=== PATIENT | female | born 1970 | race Caucasian/White ===

== ENCOUNTER 2017-01-22 16:48 | Emergency (ER) | payer OTHER ==
[2017-01-22] MEDS ORDERED: ONDANSETRON 4 MG TAB.RAPDIS PO ONE (17:49)
[2017-01-22] MEDS ORDERED: OXYCODONE-ACETAMINOPHEN 5-325 MG TABLET PO ONE (17:49)
--- NOTE | 2017-01-22 17:52 | ER Document Report ---
ED Medical Screen (RME) - General Chief Complaint: Abdominal Pain Stated Complaint: ABDOMINAL PAIN,VOMITING Time Seen by Provider: 01/22/17 17:46 Notes: This 46-year-old female comes emergency room with a week long history of sharp abdominal pains, vomiting, cramps, and feeling like gas. She is on Remicade for Crohn's disease. She was put on Augmentin on 01/08/2017 after a root canal. She was put on Macrodantin 01/17/2017 for urinary tract infection. I have greeted and performed a rapid initial assessment of this patient. A comprehensive ED assessment and evaluation of the patient, analysis of test results and completion of the medical decision making process will be conducted by additional ED providers. - Related Data Allergies/Adverse Reactions: latex [Latex] Allergy (Severe, Verified 12/19/11 12:55) Shellfish * [Shellfish] Allergy (Severe, Verified 12/19/11 12:55) Past Medical History - Past Medical History Cardiac Medical History: Reports: Hx Hypertension Denies: Hx Coronary Artery Disease, Hx Heart Attack Pulmonary Medical History: Denies: Hx Asthma, Hx Bronchitis, Hx COPD, Hx Pneumonia Neurological Medical History: Denies: Hx Cerebrovascular Accident Renal/ Medical History: Denies: Hx Peritoneal Dialysis Musculoskeltal Medical History: Denies Hx Arthritis - Immunizations Hx Diphtheria, Pertussis, Tetanus Vaccination: Yes Physical Exam - Vital signs Vitals: Temp Pulse Resp BP Pulse Ox 98.5 F 110 H 22 H 121/87 H 99 01/22/17 17:20 01/22/17 17:20 01/22/17 17:20 01/22/17 17:20 01/22/17 17:20 Course - Vital Signs Vital signs: Temp Pulse Resp BP Pulse Ox 98.5 F 110 H 22 H 121/87 H 99 01/22/17 17:20 01/22/17 17:20 01/22/17 17:20 01/22/17 17:20 01/22/17 17:20
--- NOTE | 2017-01-22 19:02 | RADIOLOGY REPORT (SQ) ---
EXAM DESCRIPTION: ACUTE ABDOMEN SERIES COMPLETED DATE/TIME: 01/22/2017 6:54 pm REASON FOR STUDY: cramps, gas, Crohn's COMPARISON: None. NUMBER OF VIEWS: Three views. TECHNIQUE: Frontal chest, supine abdomen and upright abdomen radiographic images acquired. LIMITATIONS: None. FINDINGS: CHEST: Lungs clear of infiltrates. FREE AIR: None. No abnormal gas collections. BOWEL GAS PATTERN: Nonobstructive pattern. No dilated loops or air fluid levels. CALCIFICATIONS: No suspicious calcifications. HARDWARE: None in the abdomen. SOFT TISSUES: No gross mass or suggestion of organomegaly. BONES: No acute fracture. No worrisome bone lesions. OTHER: No other significant finding. IMPRESSION: NO RADIOGRAPHIC EVIDENCE FOR ACUTE ABDOMINAL DISEASE. TECHNICAL DOCUMENTATION: JOB ID: [id number] [employer]- All Rights Reserved
[2017-01-22 19:41] LABS: AMORPHOUS SEDIMENT,URINE 1+ /HPF; APPEARANCE,URINE TURBID; BILIRUBIN,URINE SMALL (NEGATIVE); GLUCOSE, URINE NEGATIVE (NEGATIVE); KETONES,URINE NEGATIVE (NEGATIVE); LEUKOCYTE ESTERASE,URINE SMALL (NEGATIVE); NITRITE,URINE NEGATIVE (NEGATIVE); PROTEIN,URINE 30 mg/dL (NEGATIVE); URINE SPECIFIC GRAVITY 1.031; UROBILINOGEN,URINE NEGATIVE mg/dL (<2.0)
[2017-01-22 20:05] LABS: ABSOLUTE BASOPHILS # (AUTO) 0.1 10^3/uL (0.0-0.2); ABSOLUTE LYMPHOCYTES (AUTO) 1.5 10^3/uL (0.5-4.7); ABSOLUTE MONOCYTES (AUTO) 0.4 10^3/uL (0.1-1.4); ABSOLUTE NEUT (AUTO) 16.5 10^3/uL (1.7-8.2); BASOPHILS % (AUTO) 0.4 % (0-2); HEMATOCRIT 46.5 % (36.0-47.0); HEMOGLOBIN 14.6 g/dL (12.0-15.5); HGB HCT DIFFERENCE -2.7; MEAN CORPUSCULAR HEMOGLOBIN 23.6 pg (27.0-33.4); MEAN CORPUSCULAR HGB CONC 31.3 g/dL (32.0-36.0); MEAN CORPUSCULAR VOLUME 75 fl (80-97); MONOCYTES % (AUTO) 2.1 % (3-13); RED BLOOD COUNT 6.18 10^6/uL (3.72-5.28); RED CELL DISTRIBUTION WIDTH 15.3 % (11.5-14.0); SEGMENTED NEUTROPHILS % (AUTO) 89.5 % (42-78); WHITE BLOOD COUNT 18.4 10^3/uL (4.0-10.5)
[2017-01-22 20:06] VITALS: BP 118/82
[2017-01-22] MEDS ORDERED: NORMAL SALINE 1000 ML 1,000 ML IV ONE (20:16)
[2017-01-22] MEDS ORDERED: METHYLPREDNISOLONE INJ 125 MG/2 ML SDV IV ONE (20:17)
[2017-01-22] MEDS ORDERED: KETOROLAC TROMETHAMINE INJ/PF 30 MG/1 ML SDV IV ONE (20:17)
[2017-01-22 20:18] LABS: ALANINE AMINOTRANSFERASE 23 U/L (9-52); ALBUMIN 4.8 g/dL (3.5-5.0); ALKALINE PHOSPHATASE 63 U/L (38-126); ANION GAP 17 (5-19); ASPARTATE AMINO TRANSFERASE 20 U/L (14-36); BILIRUBIN,DIRECT 0.3 mg/dL (0.0-0.4); BILIRUBIN,TOTAL 0.8 mg/dL (0.2-1.3); BLOOD UREA NITROGEN 14 mg/dL (7-20); CALCIUM 10.3 mg/dL (8.4-10.2); CARBON DIOXIDE 19 mmol/L (22-30); CHLORIDE 103 mmol/L (98-107); CREATININE RESULT 0.89 mg/dL (0.52-1.25); GLUCOSE 141 mg/dL (75-110); LIPASE 158.8 U/L (23-300); SODIUM 139.1 mmol/L (137-145)
[2017-01-22] MEDS ORDERED: MORPHINE SULFATE 10 MG/ML INJ IV PRN (20:20)
--- NOTE | 2017-01-22 20:20 | ER Document Report ---
ED General - General Chief Complaint: Abdominal Pain Stated Complaint: ABDOMINAL PAIN,VOMITING Time Seen by Provider: 01/22/17 17:46 Notes: Patient is a 46-year-old female with past medical history of Crohn's disease currently on Remicade infusions for control who presents with 3 days of constant , diffuse abdominal cramping. Nothing improves or worsens her symptoms. States her symptoms began after she was started on a course of Augmentin for a dental infection. States she was also diagnosed with a urinary tract infection and transition to a different antibiotic which she also not seems to worsen her abdominal pain. She has since stopped all antibiotics. Notes that she has had some nausea as well as vomiting but denies any diarrhea. States she continues to have regular bowel movements. She has not had any fever. She has not seen her primary care doctor regarding her symptoms today. No prior history of abdominal surgeries. - Related Data Allergies/Adverse Reactions: latex [Latex] Allergy (Severe, Verified 12/19/11 12:55) Shellfish * [Shellfish] Allergy (Severe, Verified 12/19/11 12:55) Past Medical History - General Information source: Patient - Social History Smoking Status: Never Smoker Frequency of alcohol use: None Drug Abuse: None Lives with: Spouse/Significant other Family History: Reviewed & Not Pertinent - Past Medical History Cardiac Medical History: Reports: Hx Hypertension Denies: Hx Coronary Artery Disease, Hx Heart Attack Pulmonary Medical History: Denies: Hx Asthma, Hx Bronchitis, Hx COPD, Hx Pneumonia Neurological Medical History: Denies: Hx Cerebrovascular Accident Renal/ Medical History: Denies: Hx Peritoneal Dialysis Musculoskeltal Medical History: Denies Hx Arthritis - Immunizations Hx Diphtheria, Pertussis, Tetanus Vaccination: Yes Review of Systems - Review of Systems Notes: Constitutional: Negative for fever. HENT: Negative for sore throat. Eyes: Negative for visual changes. Cardiovascular: Negative for chest pain. Respiratory: Negative for shortness of breath. Gastrointestinal: Positive for abdominal pain and vomiting Genitourinary: Negative for dysuria. Musculoskeletal: Negative for back pain. Skin: Negative for rash. Neurological: Negative for headaches, weakness or numbness. 10 point ROS negative except as marked above and in HPI. Physical Exam - Vital signs Vitals: Temp Pulse Resp BP Pulse Ox 98.5 F 110 H 22 H 121/87 H 99 01/22/17 17:20 01/22/17 17:20 01/22/17 17:20 01/22/17 17:20 01/22/17 17:20 Interpretation: Tachycardic Notes: PHYSICAL EXAMINATION: GENERAL: Appears mildly uncomfortable but in no acute distress HEAD: Atraumatic, normocephalic. EYES: Pupils equal round and reactive to light, extraocular movements intact, sclera anicteric, conjunctiva are normal. ENT: nares patent, oropharynx clear without exudates. Moist mucous membranes. NECK: Normal range of motion, supple without lymphadenopathy LUNGS: Breath sounds clear to auscultation bilaterally and equal. No wheezes rales or rhonchi. HEART: Regular rate and rhythm without murmurs ABDOMEN: Soft, diffuse mild tenderness to palpation without focality. No rebound or guarding. Hyperactive bowel sounds. EXTREMITIES: Normal range of motion, no pitting or edema. No cyanosis. NEUROLOGICAL: No focal neurological deficits. Moves all extremities spontaneously and on command. PSYCH: Normal mood, normal affect. SKIN: Warm, Dry, normal turgor, no rashes or lesions noted. Course - Re-evaluation Re-evalutation: 01/22/17 20:19 Patient presents with signs and symptoms most consistent with an acute Crohn's flare. Abdominal exam is without any focal rebound or guarding but is diffusely tender. She is not vomiting and continues to have bowel movements. Her laboratories demonstrate a leukocytosis which is expected in the setting of a Crohn's flare. She has no focal rebound or guarding to suggest an acute appendicitis, mesenteric ischemia, bowel perforation, or bowel obstruction. Plain films did not demonstrate any free air or evidence of small bowel obstruction. Will proceed with IV fluids, antiemetics, pain control and reassess. 01/22/17 21:49 On repeat abdominal exam, patient no longer has any tenderness. She states she also feels much better. Stool assay testing is normal. I have had a risks and benefits conversation with the patient regarding CT imaging of the abdomen and pelvis at this time. We discussed, based on today's exam and labs there is a possibility that they could have a diagnosis that could be better clarified by CT and that this could possibly size changer. We discussed the risks of radiation to the abdomen and pelvis. We discussed the alternative of close follow-up with their primary care physician for a recheck of the abdomen within 24 hours as well as reasons to return to the emergency department. After this conversation, the patient has elected to avoid CT imaging of the abdomen and pelvis at this time. They have capacity. They have verbalized the importance of close follow-up as well as reasons to return to the emergency department including worsening abdominal pain, fever, persistent vomiting, or any other symptoms that are worrisome to them. - Vital Signs Vital signs: Temp Pulse Resp BP Pulse Ox 98.5 F 110 H 14 118/82 99 01/22/17 22:39 01/22/17 17:20 01/22/17 22:00 01/22/17 20:00 01/22/17 22:00 - Laboratory Result Diagrams: 01/22/17 19:45 01/22/17 19:45 Laboratory results interpreted by me: 01/22/17 01/22/17 01/22/17 18:10 19:45 19:45 WBC 18.4 H RBC 6.18 H MCV 75 L MCH 23.6 L MCHC 31.3 L RDW 15.3 H Seg Neutrophils % 89.5 H Lymphocytes % 8.0 L Monocytes % 2.1 L Absolute Neutrophils 16.5 H Carbon Dioxide 19 L Glucose 141 H Calcium 10.3 H Total Protein 9.0 H Urine Protein 30 H Urine Bilirubin SMALL H Ur Leukocyte Esterase SMALL H - Diagnostic Test Radiology reviewed: Image reviewed, Reports reviewed Radiology results interpreted by me: 01/22/17 21:50 Abdominal x-ray: No free air or evidence of obstruction Discharge - Discharge Clinical Impression: Abdominal pain Qualifiers: Abdominal location: generalized Qualified Code(s): R10.84 - Generalized abdominal pain Condition: Good Disposition: HOME, SELF-CARE Additional Instructions: You have been seen in the Emergency Department (ED) for abdominal pain. Your evaluation did not identify a clear cause of your symptoms but was generally reassuring. Your symptoms may be related to a Crohn's flare and you are being treated with a 7 day course of steroids. Please follow-up with your primary care doctor tomorrow for recheck of your abdomen. Return to the ED if your abdominal pain worsens or fails to improve, you develop bloody vomiting, bloody diarrhea, you are unable to tolerate fluids due to vomiting, fever greater than 101, or other symptoms that concern you. Prescriptions: Morphine Sulfate [Morphine Ir 15 mg Tablet] 15 mg PO Q4HP PRN #12 tablet PRN Reason: Prednisone [Deltasone 20 mg Tablet] 3 tab PO DAILY 7 Days Forms: Return to Work Referrals: KIERA LLAA PA-C [Primary Care Provider] - Follow up tomorrow
[2017-01-22 20:41] LABS: ERYTHROCYTE SEDIMENTATION RATE 18 mm/hr (0-20)
[2017-01-22] MEDS ORDERED: ONDANSETRON ODT 4 MG TAB (6 TAB/DSPK) PO PRN (21:50)
[2017-01-22] MEDS ORDERED: HYDROCODONE/ACETAMINOPHEN 5-325 MG 6 TAB/DSPK PO PRN (21:50)
== END 2017-01-22 22:30 | disposition home or self-care (01) ==
LOC: ER 16:48
DX: K50.90 Crohn's disease, unspecified, without complications (principal); Z79.899 Other long term (current) drug therapy; R10.84 Generalized abdominal pain; R11.2 Nausea with vomiting, unspecified; R00.0 Tachycardia, unspecified; D72.829 Elevated white blood cell count, unspecified; I10 Essential (primary) hypertension; Z87.440 Personal history of urinary (tract) infections; Z91.040 Latex allergy status; Z91.013 Allergy to seafood
CPT/HCPCS: 99284; 96361; 96374; 96375; 36415; 87045; 89055; 87205; 83690; 85025; 85652; 82272; 80053; 81001; 87493 ×2; 74022; S0119; J2930; J1885; J7030

== ENCOUNTER 2017-02-07 05:21 | Day surgery (SDC) | payer OTHER ==
--- NOTE | 2017-02-06 13:00 | EKG REPORT ---
SEVERITY:- NORMAL ECG - SINUS RHYTHM : Confirmed by: Kenn Vincent MD 06-Feb-2017 13:00:02
[2017-02-06 13:28] LABS: HEMATOCRIT 43.6 % (36.0-47.0); HEMOGLOBIN 13.8 g/dL (12.0-15.5); HGB HCT DIFFERENCE -2.2; MEAN CORPUSCULAR HEMOGLOBIN 24.4 pg (27.0-33.4); MEAN CORPUSCULAR HGB CONC 31.7 g/dL (32.0-36.0); MEAN CORPUSCULAR VOLUME 77 fl (80-97); RED BLOOD COUNT 5.67 10^6/uL (3.72-5.28); RED CELL DISTRIBUTION WIDTH 16.5 % (11.5-14.0); WHITE BLOOD COUNT 6.5 10^3/uL (4.0-10.5)
[2017-02-06 13:38] LABS: APPEARANCE,URINE CLEAR; BILIRUBIN,URINE NEGATIVE (NEGATIVE); GLUCOSE, URINE NEGATIVE (NEGATIVE); KETONES,URINE NEGATIVE (NEGATIVE); LEUKOCYTE ESTERASE,URINE MODERATE (NEGATIVE); NITRITE,URINE NEGATIVE (NEGATIVE); PROTEIN,URINE NEGATIVE (NEGATIVE); URINE SPECIFIC GRAVITY 1.008; UROBILINOGEN,URINE NEGATIVE mg/dL (<2.0)
[2017-02-06 13:52] LABS: ALANINE AMINOTRANSFERASE 32 U/L (9-52); ALKALINE PHOSPHATASE 61 U/L (38-126); ANION GAP 15 (5-19); ASPARTATE AMINO TRANSFERASE 20 U/L (14-36); BILIRUBIN,DIRECT 0.4 mg/dL (0.0-0.4); BILIRUBIN,TOTAL 0.8 mg/dL (0.2-1.3); BLOOD UREA NITROGEN 8 mg/dL (7-20); CALCIUM 9.9 mg/dL (8.4-10.2); CARBON DIOXIDE 25 mmol/L (22-30); CHLORIDE 100 mmol/L (98-107); CREATININE RESULT 0.77 mg/dL (0.52-1.25); GLUCOSE 90 mg/dL (75-110); POTASSIUM 4.5 mmol/L (3.6-5.0); SODIUM 140.4 mmol/L (137-145)
[~2017-02-07 05:21] MED LIST: CEFAZOLIN 1 GM/D5W RTU 1 GM/50 ML RTUPB IV PRN; LIDOCAINE 0.5% INJ-PF (5 MG/ML) 50 ML SDV SUBCUT PRN; RINGERS SOLUTION,LACTATED 1,000 ML IV PRN
[2017-02-07] MEDS ORDERED: PROPOFOL INJ 200 MG/20 ML VIAL IV ONE (07:09)
[2017-02-07] MEDS ORDERED: EPHEDRINE SULFATE INJ 50 MG/1 ML AMPULE ONE (07:09)
[2017-02-07] MEDS ORDERED: FENTANYL CITRATE INJ/PF 250 MCG/5 ML AMPULE ONE (07:09)
[2017-02-07] MEDS ORDERED: MIDAZOLAM 2 MG/2 ML INJ ONE (07:09)
[2017-02-07] MEDS ORDERED: ACETAMINOPHEN 100 ML IV ONE ×2 (07:09→15:00)
[2017-02-07] MEDS ORDERED: HYDROMORPHONE HCL INJ/PF 2 MG/ML AMPULE ONE (07:10)
[2017-02-07] MEDS ORDERED: PROMETHAZINE HCL INJ 25 MG/1 ML VIAL IV PRN ×2 (10:28)
[2017-02-07] MEDS ORDERED: OXYCODONE-ACETAMINOPHEN 5-325 MG TABLET PO PRN ×2 (10:28)
[2017-02-07] MEDS ORDERED: MORPHINE SULFATE 10 MG/ML INJ IV PRN ×2 (10:28→11:25)
[2017-02-07] MEDS ORDERED: FENTANYL CITRATE INJ/PF 100 MCG/2 ML AMPUL IV PRN ×3 (10:28)
[2017-02-07] MEDS ORDERED: MEPERIDINE HCL/PF INJ 25 MG/1 ML DISP.SYRIN IV PRN (10:28)
[2017-02-07] MEDS ORDERED: DIPHENHYDRAMINE HCL 50 MG/ML VIAL IV PRN (10:28)
[2017-02-07] MEDS: FENTANYL CITRATE INJ/PF 100 MCG/2 ML AMPUL ONE ×2 (10:58→11:13)
[2017-02-07] MEDS ORDERED: IBUPROFEN 800 MG TABLET PO PRN (11:25)
[2017-02-07] MEDS ORDERED: RINGERS SOLUTION,LACTATED 1,000 ML IV PRN (11:26)
--- NOTE | 2017-02-07 12:04 | OPERATIVE REPORT E ---
Operative Report NAME: ADITYA ONTIVEROS : 1970 AGE: 46Y DATE OF SURGERY: ROOM: PREOPERATIVE DIAGNOSES: 1. Abnormal uterine bleeding. 2. Chronic pelvic pain. 3. Anemia. 4. Suspected adhesion disease. POSTOPERATIVE DIAGNOSES: 1. Abnormal uterine bleeding. 2. Chronic pelvic pain. 3. Anemia. 4. Suspected adhesion disease. 5. Adhesions. OPERATION: Robotic-assisted total laparoscopic hysterectomy with bilateral salpingectomy, and extensive lysis of adhesions. SURGEON: TRICIA NGUYEN M.D. ANESTHESIA: DR. DE LA GARZA with general endotracheal. FINDINGS: 1. Dense omental adhesions to the anterior abdominal wall going pretty much the length of especially the right sidewall and in the midline. 2. Enlarged uterus probably about 14-week size, very boggy in appearance. Both fallopian tubes did have evidence of tubal ligation. 3. Mild adhesions of the epiploica of the descending colon to the pelvic sidewall. 4. Paratubal cysts that were noted on the fallopian tubes on both sides. ESTIMATED BLOOD LOSS: 100 mL. SPECIMENS REMOVED: Uterus, cervix, and bilateral fallopian tubes. PROCEDURE: Patient was taken to the operating room, prepared and draped in the normal sterile fashion in the dorsal lithotomy position. Under sterile conditions a Bernabe was placed to gravity without difficulty. A sterile speculum was then placed into the vagina, and the cervix was examined. The anterior lip of the cervix was grasped with a single-tooth tenaculum, and the cervix was dilated to accommodate a large VCare. This was placed without difficulty for uterine manipulation. The speculum was then removed, and the VCare left in place. Gloves were changed, and attention was then turned to the upper portion of the case where an umbilical skin incision was made right at the umbilicus with a scalpel, and this was carried through to the underlying layer of fascia with a hemostat. This fascia was then grasped with 2 Kochers, and cutdown method was used to enter the peritoneal cavity. Peritoneal cavity was entered sharply with Reji, careful to inspect for possible intervening bowel. Peritoneal cavity entry was successful without injury. The fascia was then extended carefully again to avoid adhesions and bowel with the Lewis scissors to accommodate the GelPOINT. The GelPOINT was then placed without difficulty, the ports were placed through the GelPOINT, and the abdomen was then insufflated with approximately 2 liters of CO2 gas through the AirSeal trocar. The camera was introduced through the camera port, and under direct visualization two 5-mm ports were placed approximately 10 cm on either side of the umbilicus. The robot was docked, and the instruments were placed with the monopolar scissors on the right and a vessel sealer on the left. I then de-scrubbed and sat at the console where I began trying to remove some of the omental adhesions as best I could with blunt dissection using the vessel sealer as a grasper with gentle traction and pulling down as many of those adhesions as I could until I could visualize the adnexae more adequately. I began with the left adnexa as this was the part that presented itself more readily. I then removed the fallopian tube using the monopolar scissors and placed the fallopian tube with the paratubal cyst into the anterior cul-de-sac for removal later. I then began transecting the uteroovarian ligament with the vessel sealer until I got to the level of the external cervical os. I then, because I could not well visualize the anterior aspect of the cervix easily at this point due to adhesions, as well as lack of ability to manipulate the uterus because of the adhesions, turned my attention to the left adnexa. I grasped the left fallopian tube; however, the omental adhesions began to impede my visualization, so I turned my attention back to the omental adhesions once more. Then I had the surgical elastic knitter hand frame remove the camera, and clean and replace, as well as re-position the monopolar scissors to remove them and re-position the port slightly in order to get better manipulation of the instrument. Once the camera and the instrument were replaced, I again once more turned my attention to the omental adhesions, and these were taken down using the monopolar scissors sharply with careful inspection to make sure that there were no loops of bowel that were hidden in the omentum. Once this was successful, I was able to get the rest of the adhesions down at this point, making visualization of the adnexa and the uterus much easier. I then turned my attention back to the left adnexa where the fallopian tube was grasped, and this was removed using the monopolar scissors, and again tucked into the anterior cul-de-sac for removal by the surgical elastic knitter hand frame through the accessory AirSeal port while I continued with the rest of the case. The uteroovarian ligament was then transected using the vessel sealer on this side, and I carried my coagulation and skeletonization of the uterine artery down to the level of the external cervical os. At this point I was able to get better visualization of the anterior aspect of the cervix and noted that the bladder adhesions were indeed very dense at this point. I then began with careful dissection and creation of a bladder flap, and this was done with the monopolar scissors and some blunt dissecting until I was able to feel that the bladder was well away and the VCare cup was able to be noted through the mucosa. I then continued with coagulation of the uterine arteries bilaterally, kind of switching back and forth using the vessel sealer until I was able to get to the VCare cup all the way around and noted it through the mucosa all the way around. There were significant more adhesions on the left uterosacral. These had to be taken down as well using the vessel sealer as well as the monopolar scissors as needed. Once this was completed, and I was able to circumferentially visualize the cup around the cervix through the mucosa, I then began with a colporrhaphy posteriorly between the uterosacral ligaments, and I carried this around circumferentially until the specimen was completely freed. The specimen was then removed by the other manager surgical through the vagina. The instruments were changed to a Rajesh Needle Video Tape Transferrer and a ProGrasp. A V-Loc needle was introduced through the AirSeal executive personal assistant's port, and I then closed the cuff incorporating the uterosacral ligaments at both angles using the V-Loc suture. I did have to dissect the bladder away somewhat from the superior aspect of the vaginal cuff in order to avoid injury or incorporation of the bladder into the closure, and this was done with simple blunt dissection. Once the vaginal cuff was completely closed, the needle was removed without difficulty. The ureters were then inspected carefully and found to have no evidence of hydroureter and to be peristalsing. The Bernabe was inspected and found that the patient was having adequate urine production. Therefore, it was felt that the ureters were not injured during the case. The robot was then undocked, and the ports and instruments were removed carefully. The GelPort was released, and the abdomen deflated of gas. The fascia at the umbilical incision was closed with #0 Vicryl, taking care to visualize bowel well away from the fascial closure while being closed. The subcutaneous space in this incision was also closed with 3-0 chromic. The skin was closed at all 3 sites using 4-0 Vicryl. The patient tolerated the procedure well. Sponge, lap, and needle counts were correct x2, and the patient was taken to recovery in stable condition. DICTATING PHYSICIAN: TRICIA NGUYEN M.D. [id number] PHY#: [id number] ID: [id number] JOB#: [id number] ACCT: [id number] cc:TRICIA NGUYEN M.D. >
[2017-02-07] MEDS: OXYCODONE-ACETAMINOPHEN 5-325 MG TABLET PO PRN ×2 (12:28→18:36)
[2017-02-07] MEDS ORDERED: NEOSTIGMINE METHYLSULFATE 10 MG/10 ML VIAL ONE (13:17)
[2017-02-07] MEDS ORDERED: ONDANSETRON HCL INJ/PF 4 MG/2 ML SDV ONE (13:17)
[2017-02-07] MEDS ORDERED: DEXAMETHASONE SOD PHOSPHATE INJ 4 MG/1 ML VIAL ONE (13:17)
[2017-02-07] MEDS ORDERED: KETOROLAC TROMETHAMINE 60 MG/2 ML SDV ONE (13:17)
[2017-02-07] MEDS ORDERED: SUCCINYLCHOLINE CHLORIDE INJ 200 MG/10 ML VIAL ONE (13:17)
[2017-02-07] MEDS ORDERED: GLYCOPYRROLATE INJ 0.4 MG/2 ML VIAL ONE (13:17)
[2017-02-07] MEDS ORDERED: ROCURONIUM BROMIDE INJ 50 MG/5 ML VIAL IV ONE (13:17)
[2017-02-07] MEDS ORDERED: KETOROLAC TROMETHAMINE INJ/PF 30 MG/1 ML SDV IV SCH (14:00)
[2017-02-07 18:59] VITALS: BP 125/75
[2017-02-08] MEDS ORDERED: IBUPROFEN 800 MG TABLET PO PRN (12:00)
== END 2017-02-07 20:20 | disposition home or self-care (01) ==
LOC: OROUT 05:21 → 2N 12:10 → OROUT 20:20
PROVIDERS: ATTEND Obstetrics & Gynecology
PROC: 0UTC4ZZ Resection of Cervix, Percutaneous Endoscopic Approach (ICD-10-PCS; 2017-02-07)
PROC: 0UT74ZZ Resection of Bilateral Fallopian Tubes, Percutaneous Endoscopic Approach (ICD-10-PCS; 2017-02-07)
PROC: 8E0W4CZ Robotic Assisted Procedure of Trunk Region, Percutaneous Endoscopic Approach (ICD-10-PCS; 2017-02-07)
PROC: 0DNW4ZZ Release Peritoneum, Percutaneous Endoscopic Approach (ICD-10-PCS; 2017-02-07)
PROC: 0UT94ZZ Resection of Uterus, Percutaneous Endoscopic Approach (ICD-10-PCS; principal; 2017-02-07 07:30)
DX: N93.8 Other specified abnormal uterine and vaginal bleeding (principal); G89.29 Other chronic pain; R10.2 Pelvic and perineal pain; D64.9 Anemia, unspecified; K66.0 Peritoneal adhesions (postprocedural) (postinfection); N87.0 Mild cervical dysplasia; N70.91 Salpingitis, unspecified; N83.8 Other noninflammatory disorders of ovary, fallopian tube and broad ligament; I10 Essential (primary) hypertension; E03.9 Hypothyroidism, unspecified; Z79.899 Other long term (current) drug therapy; Z91.040 Latex allergy status
CPT/HCPCS: 49329; 58571; S2900; 36415; 80053; 81001; 81025; 840; 85027; 86850; 86900; 86901; 88307; 93005; 93010; J0131; J0330; J0690; J1100; J1170; J1885; J2250; J2405; J2704; J3010; J3490

== ENCOUNTER 2017-05-05 10:32 | Emergency (ER) | payer OTHER ==
[2017-05-05] MEDS ORDERED: NORMAL SALINE 1000 ML 1,000 ML IV PRN (10:59)
[2017-05-05] MEDS ORDERED: ONDANSETRON HCL INJ/PF 4 MG/2 ML SDV IV ONE (10:59)
[2017-05-05] MEDS ORDERED: METHYLPREDNISOLONE INJ 125 MG/2 ML SDV IV ONE (11:09)
--- NOTE | 2017-05-05 11:09 | ER Document Report ---
ED Medical Screen (RME) - General Chief Complaint: Abdominal Pain Stated Complaint: ABDOMINAL PAIN Time Seen by Provider: 05/05/17 10:55 Mode of Arrival: Ambulatory Information source: Patient TRAVEL OUTSIDE OF THE [place] IN LAST 30 DAYS: No - HPI Patient complains to provider of: Abdominal pain, nausea Notes: 05/05/17 11:08 Patient is a 47-year-old female with a history of Crohn's, presenting to the emergency room today complaining of 2 day history of abdominal pain with nausea , no vomiting, no fevers, no blood in her stools, she currently takes Humira and has not missed any doses - Related Data Allergies/Adverse Reactions: latex [Latex] Allergy (Severe, Verified 05/05/17 10:53) Shellfish * [Shellfish] Allergy (Severe, Verified 05/05/17 10:53) aspirin Allergy (Intermediate, Verified 05/05/17 10:53) Past Medical History - Past Medical History Cardiac Medical History: Reports: Hx Hypertension - ON MEDS Denies: Hx Atrial Fibrillation, Hx Congestive Heart Failure, Hx Coronary Artery Disease, Hx Heart Attack, Hx Hypercholesterolemia, Hx Peripheral Vascular Disease, Hx Pulmonary Embolism, Hx Heart Murmur Pulmonary Medical History: Reports: Hx Bronchitis - DECEMBER 2016 Denies: Hx Asthma, Hx COPD, Hx Pneumonia, Hx Respiratory Failure, Hx Sleep Apnea, Hx Tuberculosis Neurological Medical History: Endocrine Medical History: Reports: Hx Hyperthyroidism. Denies: Hx Graves' Disease, Hx Hypothyroidism Renal/ Medical History: Denies: Hx End Stage Renal Disease, Hx Kidney Stones, Hx Peritoneal Dialysis Malignancy Medical History: Denies: Hx Lung Cancer GI Medical History: Reports: Hx Crohn's Disease. Denies: Hx Gastroesophageal Reflux Disease, Hx Hiatal Hernia, Hx Irritable Bowel, Hx Liver Failure, Hx Ulcer Musculoskeltal Medical History: Psychiatric Medical History: Reports: Hx Depression Denies: Hx Bipolar Disorder, Hx Post Traumatic Stress Disorder, Hx Schizophrenia Past Surgical History: Reports: Hx Section - 2X. Denies: Hx Appendectomy, Hx Bowel Surgery, Hx Cholecystectomy, Hx Colostomy, Hx Coronary Artery Bypass Graft, Hx Gastric Bypass Surgery, Hx Herniorrhaphy, Hx Hysterectomy, Hx Mastectomy, Hx Pacemaker, Hx Tonsillectomy, Hx Tubal Ligation - Immunizations Hx Diphtheria, Pertussis, Tetanus Vaccination: Yes Physical Exam - Vital signs Vitals: Temp Pulse Resp BP Pulse Ox 97.9 F 91 20 134/94 H 98 05/05/17 10:54 05/05/17 10:54 05/05/17 10:54 05/05/17 10:54 05/05/17 10:54 Course - Vital Signs Vital signs: Temp Pulse Resp BP Pulse Ox 97.9 F 91 20 134/94 H 98 05/05/17 10:54 05/05/17 10:54 05/05/17 10:54 05/05/17 10:54 05/05/17 10:54
[2017-05-05 11:42] LABS: ABSOLUTE BASOPHILS # (AUTO) 0.1 10^3/uL (0.0-0.2); ABSOLUTE EOSINOPHILS # (AUTO) 0.1 10^3/uL (0.0-0.6); ABSOLUTE LYMPHOCYTES (AUTO) 2.5 10^3/uL (0.5-4.7); ABSOLUTE MONOCYTES (AUTO) 0.6 10^3/uL (0.1-1.4); ABSOLUTE NEUT (AUTO) 9.3 10^3/uL (1.7-8.2); EOSINOPHILS % (AUTO) 1.1 % (0-6); HEMATOCRIT 39.1 % (36.0-47.0); HGB HCT DIFFERENCE -0.1; MEAN CORPUSCULAR HEMOGLOBIN 25.5 pg (27.0-33.4); MEAN CORPUSCULAR HGB CONC 33.3 g/dL (32.0-36.0); MEAN CORPUSCULAR VOLUME 77 fl (80-97); MONOCYTES % (AUTO) 4.9 % (3-13); RED BLOOD COUNT 5.11 10^6/uL (3.72-5.28); WHITE BLOOD COUNT 12.7 10^3/uL (4.0-10.5)
[2017-05-05 12:05] LABS: ALANINE AMINOTRANSFERASE 32 U/L (9-52); ALBUMIN 4.2 g/dL (3.5-5.0); ALKALINE PHOSPHATASE 66 U/L (38-126); ANION GAP 10 (5-19); ASPARTATE AMINO TRANSFERASE 18 U/L (14-36); BILIRUBIN,DIRECT 0.3 mg/dL (0.0-0.4); BILIRUBIN,TOTAL 0.5 mg/dL (0.2-1.3); BLOOD UREA NITROGEN 11 mg/dL (7-20); CALCIUM 9.8 mg/dL (8.4-10.2); CARBON DIOXIDE 23 mmol/L (22-30); CHLORIDE 106 mmol/L (98-107); CREATININE RESULT 0.76 mg/dL (0.52-1.25); GLUCOSE 87 mg/dL (75-110); LIPASE 94.2 U/L (23-300); POTASSIUM 4.4 mmol/L (3.6-5.0); SODIUM 139.2 mmol/L (137-145); TOTAL PROTEIN 7.6 g/dL (6.3-8.2)
[2017-05-05 12:38] LABS: APPEARANCE,URINE TURBID; BILIRUBIN,URINE NEGATIVE (NEGATIVE); GLUCOSE, URINE NEGATIVE (NEGATIVE); KETONES,URINE NEGATIVE (NEGATIVE); LEUKOCYTE ESTERASE,URINE NEGATIVE (NEGATIVE); NITRITE,URINE NEGATIVE (NEGATIVE); PROTEIN,URINE NEGATIVE (NEGATIVE); URINE SPECIFIC GRAVITY 1.029; UROBILINOGEN,URINE NEGATIVE mg/dL (<2.0)
[2017-05-05] MEDS ORDERED: HYDROMORPHONE HCL INJ/PF 2 MG/ML AMPULE IV ONE (12:40)
--- NOTE | 2017-05-05 13:00 | ER Document Report ---
ED General - General Chief Complaint: Abdominal Pain Stated Complaint: ABDOMINAL PAIN Time Seen by Provider: 05/05/17 10:55 Mode of Arrival: Ambulatory Information source: Patient Notes: 47-year-old female history Crohn's disease presents with complaints of abdominal pain. Patient notes that she has recently been switched to Humira denies any fevers or chills admits to nausea and generalized abdominal pain. Patient has never had an abscess before and states she does not feel like there is any severe pain. Patient was last on steroids 3 months prior TRAVEL OUTSIDE OF THE [place] IN LAST 30 DAYS: No - HPI Onset: Last week Onset/Duration: Intermittent Quality of pain: Cramping Severity: Mild Pain Level: 1 Associated symptoms: Diarrhea, Nausea, Vomiting Exacerbated by: Food - Patient is trying out new foods Relieved by: Denies Similar symptoms previously: Yes Recently seen / treated by doctor: Yes - Related Data Allergies/Adverse Reactions: latex [Latex] Allergy (Severe, Verified 05/05/17 10:53) Shellfish * [Shellfish] Allergy (Severe, Verified 05/05/17 10:53) aspirin Allergy (Intermediate, Verified 05/05/17 10:53) Past Medical History - General Information source: Patient - Social History Smoking Status: Never Smoker Cigarette use (# per day): No Chew tobacco use (# tins/day): No Smoking Education Provided: No Frequency of alcohol use: Occasional Drug Abuse: None Family History: Reviewed & Not Pertinent Patient has suicidal ideation: No Patient has homicidal ideation: No - Past Medical History Cardiac Medical History: Reports: Hx Hypertension - ON MEDS Denies: Hx Atrial Fibrillation, Hx Congestive Heart Failure, Hx Coronary Artery Disease, Hx Heart Attack, Hx Hypercholesterolemia, Hx Peripheral Vascular Disease, Hx Pulmonary Embolism, Hx Heart Murmur Pulmonary Medical History: Reports: Hx Bronchitis - DECEMBER 2016 Denies: Hx Asthma, Hx COPD, Hx Pneumonia, Hx Respiratory Failure, Hx Sleep Apnea, Hx Tuberculosis Neurological Medical History: Endocrine Medical History: Reports: Hx Hyperthyroidism. Denies: Hx Graves' Disease, Hx Hypothyroidism Renal/ Medical History: Denies: Hx End Stage Renal Disease, Hx Kidney Stones, Hx Peritoneal Dialysis Malignancy Medical History: Denies: Hx Lung Cancer GI Medical History: Reports: Hx Crohn's Disease. Denies: Hx Gastroesophageal Reflux Disease, Hx Hiatal Hernia, Hx Irritable Bowel, Hx Liver Failure, Hx Ulcer Musculoskeltal Medical History: Psychiatric Medical History: Reports: Hx Depression Denies: Hx Bipolar Disorder, Hx Post Traumatic Stress Disorder, Hx Schizophrenia Past Surgical History: Reports: Hx Section - 2X. Denies: Hx Appendectomy, Hx Bowel Surgery, Hx Cholecystectomy, Hx Colostomy, Hx Coronary Artery Bypass Graft, Hx Gastric Bypass Surgery, Hx Herniorrhaphy, Hx Hysterectomy, Hx Mastectomy, Hx Pacemaker, Hx Tonsillectomy, Hx Tubal Ligation - Immunizations Hx Diphtheria, Pertussis, Tetanus Vaccination: Yes Review of Systems - Review of Systems Notes: REVIEW OF SYSTEMS: CONSTITUTIONAL : Denies fever, chills, or sweats. Denies recent illness. EENT: Denies eye, ear, throat, or mouth pain or symptoms. Denies nasal or sinus congestion or discharge. Denies throat, tongue, or mouth swelling or difficulty swallowing. CARDIOVASCULAR: Denies chest pain. Denies palpitations or racing or irregular heart beat. Denies ankle edema. RESPIRATORY: Denies cough, cold, or chest congestion. Denies shortness of breath, difficulty breathing, or wheezing. GASTROINTESTINAL: Admits to abdominal pain nausea vomiting. GENITOURINARY: Denies difficulty urinating, painful urination, burning, frequency, blood in urine, or discharge. FEMALE GENITOURINARY: Denies vaginal bleeding, heavy or abnormal periods, irregular periods. Denies vaginal discharge or odor. MUSCULOSKELETAL: Denies back or neck pain or stiffness. Denies joint pain or swelling. SKIN: Denies rash, lesions or sores. HEMATOLOGIC : Denies easy bruising or bleeding. LYMPHATIC: Denies swollen, enlarged glands. NEUROLOGICAL: Denies confusion or altered mental status. Denies passing out or loss of consciousness. Denies dizziness or lightheadedness. Denies headache. Denies weakness or paralysis or loss of use of either side. Denies problems with gait or speech. Denies sensory loss, numbness, or tingling. Denies seizures. PSYCHIATRIC: Denies anxiety or stress. Denies depression, suicidal ideation, or homicidal ideation. ALL OTHER SYSTEMS REVIEWED AND NEGATIVE. PHYSICAL EXAMINATION: GENERAL: Well-appearing, well-nourished and in no acute distress. HEAD: Atraumatic, normocephalic. EYES: Pupils equal round and reactive to light, extraocular movements intact, conjunctiva are normal. ENT: Nares patent, oropharynx clear without exudates. Moist mucous membranes. NECK: Normal range of motion, supple without lymphadenopathy LUNGS: Breath sounds clear to auscultation bilaterally and equal. No wheezes rales or rhonchi. HEART: Regular rate and rhythm without murmurs ABDOMEN: Soft, generalized mild tenderness nondistended abdomen. No guarding, no rebound. No masses appreciated. Female : deferred Musculoskeletal: Normal range of motion, no pitting or edema. No cyanosis. NEUROLOGICAL: Cranial nerves grossly intact. Normal speech, normal gait. Normal sensory, motor exams PSYCH: Normal mood, normal affect. SKIN: Warm, Dry, normal turgor, no rashes or lesions noted. Dictation was performed using [employer] voice recognition software Physical Exam - Vital signs Vitals: Temp Pulse Resp BP Pulse Ox 97.9 F 91 20 134/94 H 98 05/05/17 10:54 05/05/17 10:54 05/05/17 10:54 05/05/17 10:54 05/05/17 10:54 Course - Re-evaluation Re-evalutation: 05/05/17 14:48 Given the patient's afebrile states is not severe pain I believe that immediate imaging is not appropriate patient agrees with this plan. I will treat symptomatically patient otherwise looks extremely well, patient's lab work noted no significant abnormality she was discharged with no complications patient was happy with this plan After performing a Medical Screening Examination, I estimate there is LOW risk for ACUTE APPENDICITIS, BOWEL OBSTRUCTION, ACUTE CHOLECYSTITIS, PERFORATED DIVERTICULITIS, INCARCERATED HERNIA, PANCREATITIS, PELVIC INFLAMMATORY DISEASE, PERFORATED ULCER, ECTOPIC , or TUBO-OVARIAN ABSCESS, thus I consider the discharge disposition reasonable. Also, there is no evidence or peritonitis , sepsis, or toxicity. I have reevaluated this patient multiple times and no significant life threatening changes are noted. The patient and I have discussed the diagnosis and risks, and we agree with discharging home with close follow-up with the understanding that symptoms and presentations can change. We also discussed returning to the Emergency Department immediately if new or worsening symptoms occur. We have discussed the symptoms which are most concerning (e.g., bloody stool, fever, changing or worsening pain, vomiting) that necessitate immediate return. - Vital Signs Vital signs: Temp Pulse Resp BP Pulse Ox 97.9 F 69 16 112/67 98 05/05/17 10:54 05/05/17 13:51 05/05/17 13:51 05/05/17 13:51 05/05/17 13:51 - Laboratory Result Diagrams: 05/05/17 11:21 05/05/17 11:21 Laboratory results interpreted by me: 05/05/17 11:21 WBC 12.7 H MCV 77 L MCH 25.5 L RDW 15.0 H Absolute Neutrophils 9.3 H Discharge - Discharge Clinical Impression: Abdominal pain Qualifiers: Abdominal location: generalized Qualified Code(s): R10.84 - Generalized abdominal pain Crohn disease Qualifiers: Gastrointestinal tract location: small intestine Digestive disease complication type: without complication Qualified Code(s): K50.00 - Crohn's disease of small intestine without complications Condition: Stable Disposition: HOME, SELF-CARE Instructions: Crohn's Disease ([facility]) Additional Instructions: Follow up with your physician tomorrow for further care or return to the ED IMMEDIATELY if symptoms worsen or new concerns occur. If you cannot afford to follow up with your primary care physician a list of low cost clinics have been provided at the end of your discharge papers as well. Prescriptions: Hydrocodone/Acetaminophen [[place] 5-325 mg Tablet] 1 tab PO Q6 #14 tablet Metoclopramide HCl [Reglan 10 mg Tablet] 1 - 2 tab PO Q6 #25 tablet Prednisone [Deltasone 20 mg Tablet] 3 tab PO DAILY 5 Days tablet Referrals: KIERA LALA PA-C [Primary Care Provider] - Follow up as needed
[2017-05-05 13:53] VITALS: BP 112/67
== END 2017-05-05 14:00 | disposition home or self-care (01) ==
LOC: ER 10:32
DX: K50.00 Crohn's disease of small intestine without complications (principal); R10.84 Generalized abdominal pain
CPT/HCPCS: 99284; 96361; 96374; 96375; 36415; 87086; 83690; 85025; 80053; 81001; J2930; J2405; J7030

== ENCOUNTER 2017-06-15 16:57 | Emergency (ER) | payer OTHER ==
--- NOTE | 2017-06-15 17:25 | ER Document Report ---
ED General - General Chief Complaint: Abdominal Pain Stated Complaint: ABDOMINAL PAIN Time Seen by Provider: 06/15/17 17:16 Mode of Arrival: Ambulatory Information source: Patient Notes: 47 yr old female who has hx of crohns who was recently switched from remicade to another medication presents with her 3rd flare up. pt notes nausea vomitng and abd pain, denies any fevers, pt states this is similar ot previous flare up 1 month ago also seen by me. TRAVEL OUTSIDE OF THE [place] IN LAST 30 DAYS: No - HPI Onset: Last week Onset/Duration: Persistent Quality of pain: Achy Severity: Mild Pain Level: 1 Associated symptoms: Nausea, Vomiting Exacerbated by: Denies Relieved by: Denies Similar symptoms previously: Yes Recently seen / treated by doctor: Yes - Related Data Allergies/Adverse Reactions: latex [Latex] Allergy (Severe, Verified 05/05/17 10:53) Shellfish * [Shellfish] Allergy (Severe, Verified 05/05/17 10:53) aspirin Allergy (Intermediate, Verified 05/05/17 10:53) amoxicillin [From Augmentin] Allergy (Verified 06/15/17 16:59) clavulanic acid [From Augmentin] Allergy (Verified 06/15/17 16:59) Home Medications: Current Home Medications Adalimumab [Humira] 40 mg SQ ASDIR PRN 06/15/17 [History] Past Medical History - Social History Smoking Status: Never Smoker Cigarette use (# per day): No Chew tobacco use (# tins/day): No Smoking Education Provided: No Family History: Reviewed & Not Pertinent Patient has suicidal ideation: No Patient has homicidal ideation: No - Past Medical History Cardiac Medical History: Reports: Hx Hypertension - ON MEDS Denies: Hx Atrial Fibrillation, Hx Congestive Heart Failure, Hx Coronary Artery Disease, Hx Heart Attack, Hx Hypercholesterolemia, Hx Peripheral Vascular Disease, Hx Pulmonary Embolism, Hx Heart Murmur Pulmonary Medical History: Reports: Hx Bronchitis - DECEMBER 2016 Denies: Hx Asthma, Hx COPD, Hx Pneumonia, Hx Respiratory Failure, Hx Sleep Apnea, Hx Tuberculosis Neurological Medical History: Endocrine Medical History: Reports: Hx Hyperthyroidism. Denies: Hx Graves' Disease, Hx Hypothyroidism Renal/ Medical History: Denies: Hx End Stage Renal Disease, Hx Kidney Stones, Hx Peritoneal Dialysis Malignancy Medical History: Denies: Hx Lung Cancer GI Medical History: Reports: Hx Crohn's Disease. Denies: Hx Gastroesophageal Reflux Disease, Hx Hiatal Hernia, Hx Irritable Bowel, Hx Liver Failure, Hx Pancreatitis, Hx Ulcer Musculoskeltal Medical History: Psychiatric Medical History: Reports: Hx Depression Denies: Hx Bipolar Disorder, Hx Post Traumatic Stress Disorder, Hx Schizophrenia Past Surgical History: Reports: Hx Section - 2X. Denies: Hx Appendectomy, Hx Bowel Surgery, Hx Cholecystectomy, Hx Colostomy, Hx Coronary Artery Bypass Graft, Hx Gastric Bypass Surgery, Hx Herniorrhaphy, Hx Hysterectomy, Hx Mastectomy, Hx Pacemaker, Hx Tonsillectomy, Hx Tubal Ligation - Immunizations Hx Diphtheria, Pertussis, Tetanus Vaccination: Yes Review of Systems - Review of Systems Notes: REVIEW OF SYSTEMS: CONSTITUTIONAL : Denies fever, chills, or sweats. Denies recent illness. EENT: Denies eye, ear, throat, or mouth pain or symptoms. Denies nasal or sinus congestion or discharge. Denies throat, tongue, or mouth swelling or difficulty swallowing. CARDIOVASCULAR: Denies chest pain. Denies palpitations or racing or irregular heart beat. Denies ankle edema. RESPIRATORY: Denies cough, cold, or chest congestion. Denies shortness of breath, difficulty breathing, or wheezing. GASTROINTESTINAL: admits ot abd pain nausea vomiting GENITOURINARY: Denies difficulty urinating, painful urination, burning, frequency, blood in urine, or discharge. FEMALE GENITOURINARY: Denies vaginal bleeding, heavy or abnormal periods, irregular periods. Denies vaginal discharge or odor. MUSCULOSKELETAL: Denies back or neck pain or stiffness. Denies joint pain or swelling. SKIN: Denies rash, lesions or sores. HEMATOLOGIC : Denies easy bruising or bleeding. LYMPHATIC: Denies swollen, enlarged glands. NEUROLOGICAL: Denies confusion or altered mental status. Denies passing out or loss of consciousness. Denies dizziness or lightheadedness. Denies headache. Denies weakness or paralysis or loss of use of either side. Denies problems with gait or speech. Denies sensory loss, numbness, or tingling. Denies seizures. PSYCHIATRIC: Denies anxiety or stress. Denies depression, suicidal ideation, or homicidal ideation. ALL OTHER SYSTEMS REVIEWED AND NEGATIVE. PHYSICAL EXAMINATION: GENERAL: Well-appearing, well-nourished and in no acute distress. HEAD: Atraumatic, normocephalic. EYES: Pupils equal round and reactive to light, extraocular movements intact, conjunctiva are normal. ENT: Nares patent, oropharynx clear without exudates. Moist mucous membranes. NECK: Normal range of motion, supple without lymphadenopathy LUNGS: Breath sounds clear to auscultation bilaterally and equal. No wheezes rales or rhonchi. HEART: Regular rate and rhythm without murmurs ABDOMEN: Soft, minimally tender in the bilateral epigastric regions , no rebound guarding or peritoneal signs Female : deferred Musculoskeletal: Normal range of motion, no pitting or edema. No cyanosis. NEUROLOGICAL: Cranial nerves grossly intact. Normal speech, normal gait. Normal sensory, motor exams PSYCH: Normal mood, normal affect. SKIN: Warm, Dry, normal turgor, no rashes or lesions noted. Dictation was performed using [employer] voice recognition software Physical Exam - Vital signs Vitals: Temp Pulse Resp BP Pulse Ox 97.8 F 84 20 129/88 H 100 06/15/17 16:59 06/15/17 16:59 06/15/17 16:59 06/15/17 16:59 06/15/17 16:59 Course - Re-evaluation Re-evalutation: 06/15/17 18:46 I offered the patient lab work versus imaging versus oral medication, she does request lab work which has been ordered otherwise she looks well is in no distress 06/15/17 19:08 Patient's lab work notes no significant abnormality, she was given pain nausea control states she feels much better. I will discharge home on steroids and pain control Patient instructed to follow-up with her primary care physician regarding her medications Very strict return precautions regarding fever abscess After performing a Medical Screening Examination, I estimate there is LOW risk for ACUTE APPENDICITIS, BOWEL OBSTRUCTION, ACUTE CHOLECYSTITIS, PERFORATED DIVERTICULITIS, INCARCERATED HERNIA, PANCREATITIS, PELVIC INFLAMMATORY DISEASE, PERFORATED ULCER, ECTOPIC , or TUBO-OVARIAN ABSCESS, thus I consider the discharge disposition reasonable. Also, there is no evidence or peritonitis , sepsis, or toxicity. I have reevaluated this patient multiple times and no significant life threatening changes are noted. The patient and I have discussed the diagnosis and risks, and we agree with discharging home with close follow-up with the understanding that symptoms and presentations can change. We also discussed returning to the Emergency Department immediately if new or worsening symptoms occur. We have discussed the symptoms which are most concerning (e.g., bloody stool, fever, changing or worsening pain, vomiting) that necessitate immediate return. - Vital Signs Vital signs: Temp Pulse Resp BP Pulse Ox 97.8 F 84 20 129/88 H 100 06/15/17 16:59 06/15/17 16:59 06/15/17 16:59 06/15/17 16:59 06/15/17 16:59 - Laboratory Result Diagrams: 06/15/17 18:20 06/15/17 18:20 Laboratory results interpreted by me: 06/15/17 06/15/17 18:20 18:20 RBC 5.40 H MCV 76 L MCH 24.8 L RDW 15.0 H Direct Bilirubin 0.5 H Total Protein 8.8 H Discharge - Discharge Clinical Impression: Crohns disease Qualifiers: Gastrointestinal tract location: unspecified location Digestive disease complication type: without complication Qualified Code(s): K50.90 - Crohn's disease, unspecified, without complications Condition: Stable Disposition: HOME, SELF-CARE Instructions: Crohn's Disease ([facility]) Additional Instructions: Follow up with your physician tomorrow for further care or return to the ED IMMEDIATELY if symptoms worsen or new concerns occur. If you cannot afford to follow up with your primary care physician a list of low cost clinics have been provided at the end of your discharge papers as well. Prescriptions: Hydrocodone/Acetaminophen [[place] 5-325 mg Tablet] 1 tab PO Q6 #14 tablet Prednisone 60 mg PO DAILY 5 Days tablet
[2017-06-15] MEDS ORDERED: PREDNISONE 20 MG TABLET PO ONE (17:26)
[2017-06-15] MEDS ORDERED: HYDROMORPHONE HCL INJ/PF 2 MG/ML AMPULE IV ONE (17:26)
[2017-06-15] MEDS ORDERED: NORMAL SALINE 1000 ML 1,000 ML IV ONE (17:26)
[2017-06-15] MEDS ORDERED: METOCLOPRAMIDE HCL INJ/PF 10 MG/2 ML SDV IV ONE (17:26)
[2017-06-15 18:01] LABS: APPEARANCE,URINE SLIGHTLY-CLOUDY; BILIRUBIN,URINE NEGATIVE (NEGATIVE); GLUCOSE, URINE NEGATIVE (NEGATIVE); KETONES,URINE NEGATIVE (NEGATIVE); LEUKOCYTE ESTERASE,URINE NEGATIVE (NEGATIVE); NITRITE,URINE NEGATIVE (NEGATIVE); PROTEIN,URINE NEGATIVE (NEGATIVE); URINE SPECIFIC GRAVITY 1.004; UROBILINOGEN,URINE NEGATIVE mg/dL (<2.0)
[2017-06-15 18:43] LABS: ABSOLUTE BASOPHILS # (AUTO) 0.1 10^3/uL (0.0-0.2); ABSOLUTE EOSINOPHILS # (AUTO) 0.2 10^3/uL (0.0-0.6); ABSOLUTE LYMPHOCYTES (AUTO) 3.4 10^3/uL (0.5-4.7); ABSOLUTE MONOCYTES (AUTO) 0.6 10^3/uL (0.1-1.4); ABSOLUTE NEUT (AUTO) 5.6 10^3/uL (1.7-8.2); BASOPHILS % (AUTO) 1.1 % (0-2); EOSINOPHILS % (AUTO) 2.2 % (0-6); HEMATOCRIT 40.8 % (36.0-47.0); HEMOGLOBIN 13.4 g/dL (12.0-15.5); HGB HCT DIFFERENCE -0.6; LYMPHOCYTES % (AUTO) 34.2 % (13-45); MEAN CORPUSCULAR HEMOGLOBIN 24.8 pg (27.0-33.4); MEAN CORPUSCULAR HGB CONC 32.8 g/dL (32.0-36.0); MEAN CORPUSCULAR VOLUME 76 fl (80-97); MONOCYTES % (AUTO) 5.8 % (3-13); SEGMENTED NEUTROPHILS % (AUTO) 56.7 % (42-78); WHITE BLOOD COUNT 9.9 10^3/uL (4.0-10.5)
[2017-06-15 19:02] LABS: ALANINE AMINOTRANSFERASE 36 U/L (9-52); ALBUMIN 4.9 g/dL (3.5-5.0); ALKALINE PHOSPHATASE 65 U/L (38-126); ANION GAP 13 (5-19); ASPARTATE AMINO TRANSFERASE 25 U/L (14-36); BILIRUBIN,DIRECT 0.5 mg/dL (0.0-0.4); BILIRUBIN,TOTAL 0.6 mg/dL (0.2-1.3); BLOOD UREA NITROGEN 17 mg/dL (7-20); CALCIUM 9.6 mg/dL (8.4-10.2); CARBON DIOXIDE 26 mmol/L (22-30); CHLORIDE 102 mmol/L (98-107); CREATININE RESULT 0.83 mg/dL (0.52-1.25); GLUCOSE 76 mg/dL (75-110); POTASSIUM 3.8 mmol/L (3.6-5.0); SODIUM 141.2 mmol/L (137-145); TOTAL PROTEIN 8.8 g/dL (6.3-8.2)
[2017-06-15 19:25] VITALS: BP 120/72
== END 2017-06-15 19:22 | disposition home or self-care (01) ==
LOC: ER 16:57
DX: K50.90 Crohn's disease, unspecified, without complications (principal); R11.2 Nausea with vomiting, unspecified; R10.9 Unspecified abdominal pain; I10 Essential (primary) hypertension; Z91.040 Latex allergy status; Z91.013 Allergy to seafood; Z88.6 Allergy status to analgesic agent; Z88.0 Allergy status to penicillin; Z79.899 Other long term (current) drug therapy
CPT/HCPCS: 99284; 96361; 96374; 96375; 36415; 85025; 81025; 80053; 81001; J2765; J1170; J7512; J7030

== ENCOUNTER 2017-07-15 05:21 | Emergency (ER) | payer OTHER ==
[2017-07-15 06:14] LABS: ABSOLUTE BASOPHILS # (AUTO) 0.1 10^3/uL (0.0-0.2); ABSOLUTE EOSINOPHILS # (AUTO) 0.3 10^3/uL (0.0-0.6); ABSOLUTE LYMPHOCYTES (AUTO) 2.4 10^3/uL (0.5-4.7); ABSOLUTE MONOCYTES (AUTO) 0.5 10^3/uL (0.1-1.4); ABSOLUTE NEUT (AUTO) 3.2 10^3/uL (1.7-8.2); BASOPHILS % (AUTO) 0.8 % (0-2); EOSINOPHILS % (AUTO) 4.4 % (0-6); HEMATOCRIT 35.4 % (36.0-47.0); HEMOGLOBIN 11.7 g/dL (12.0-15.5); HGB HCT DIFFERENCE -0.3; LYMPHOCYTES % (AUTO) 37.3 % (13-45); MEAN CORPUSCULAR HEMOGLOBIN 25.2 pg (27.0-33.4); MEAN CORPUSCULAR HGB CONC 32.9 g/dL (32.0-36.0); MEAN CORPUSCULAR VOLUME 77 fl (80-97); MONOCYTES % (AUTO) 7.8 % (3-13); RED BLOOD COUNT 4.62 10^6/uL (3.72-5.28); RED CELL DISTRIBUTION WIDTH 16.2 % (11.5-14.0); SEGMENTED NEUTROPHILS % (AUTO) 49.7 % (42-78); WHITE BLOOD COUNT 6.5 10^3/uL (4.0-10.5)
[2017-07-15] MEDS ORDERED: METHYLPREDNISOLONE INJ 125 MG/2 ML SDV IV ONE (06:17)
--- NOTE | 2017-07-15 06:17 | ER Document Report ---
ED General - General Chief Complaint: Abdominal Pain Stated Complaint: ABDOMINAL PAIN Time Seen by Provider: 07/15/17 05:55 Mode of Arrival: Ambulatory Information source: Patient Notes: 47 yr old female with hx of crohns disease presents with complaints of another flare up. Pt notes since she was taken of the remicad and placed on the humira. Pt has been seen by myself now for the 3rd time, she is quite pleasant, in mild distress at this time. States she has no fever or vomiting, admits to mild nausea but states she has nausea medication at home. TRAVEL OUTSIDE OF THE [place] IN LAST 30 DAYS: No - HPI Onset: Yesterday Onset/Duration: Sudden Quality of pain: Cramping Severity: Mild Pain Level: 1 Associated symptoms: Nausea Exacerbated by: Food Relieved by: Denies Similar symptoms previously: Yes Recently seen / treated by doctor: Yes - Related Data Allergies/Adverse Reactions: latex [Latex] Allergy (Severe, Verified 07/15/17 05:28) Shellfish * [Shellfish] Allergy (Severe, Verified 07/15/17 05:28) aspirin Allergy (Intermediate, Verified 07/15/17 05:28) amoxicillin [From Augmentin] Allergy (Verified 07/15/17 05:28) clavulanic acid [From Augmentin] Allergy (Verified 07/15/17 05:28) Past Medical History - Social History Smoking Status: Never Smoker Cigarette use (# per day): No Chew tobacco use (# tins/day): No Smoking Education Provided: No Family History: Reviewed & Not Pertinent - Past Medical History Cardiac Medical History: Reports: Hx Hypertension - ON MEDS Denies: Hx Atrial Fibrillation, Hx Congestive Heart Failure, Hx Coronary Artery Disease, Hx Heart Attack, Hx Hypercholesterolemia, Hx Peripheral Vascular Disease, Hx Pulmonary Embolism, Hx Heart Murmur Pulmonary Medical History: Reports: Hx Bronchitis - DECEMBER 2016 Denies: Hx Asthma, Hx COPD, Hx Pneumonia, Hx Respiratory Failure, Hx Sleep Apnea, Hx Tuberculosis Neurological Medical History: Endocrine Medical History: Reports: Hx Hyperthyroidism. Denies: Hx Graves' Disease, Hx Hypothyroidism Renal/ Medical History: Denies: Hx End Stage Renal Disease, Hx Kidney Stones, Hx Peritoneal Dialysis Malignancy Medical History: Denies: Hx Lung Cancer GI Medical History: Reports: Hx Crohn's Disease. Denies: Hx Gastroesophageal Reflux Disease, Hx Hiatal Hernia, Hx Irritable Bowel, Hx Liver Failure, Hx Pancreatitis, Hx Ulcer Musculoskeltal Medical History: Psychiatric Medical History: Reports: Hx Depression Denies: Hx Bipolar Disorder, Hx Post Traumatic Stress Disorder, Hx Schizophrenia Past Surgical History: Reports: Hx Breast Surgery - aumentation, Hx Section - 2X. Denies: Hx Appendectomy, Hx Bowel Surgery, Hx Cholecystectomy, Hx Colostomy, Hx Coronary Artery Bypass Graft, Hx Gastric Bypass Surgery, Hx Herniorrhaphy, Hx Hysterectomy, Hx Mastectomy, Hx Pacemaker, Hx Tonsillectomy, Hx Tubal Ligation - Immunizations Hx Diphtheria, Pertussis, Tetanus Vaccination: Yes Review of Systems - Review of Systems Notes: REVIEW OF SYSTEMS: CONSTITUTIONAL : Denies fever, chills, or sweats. Denies recent illness. EENT: Denies eye, ear, throat, or mouth pain or symptoms. Denies nasal or sinus congestion or discharge. Denies throat, tongue, or mouth swelling or difficulty swallowing. CARDIOVASCULAR: Denies chest pain. Denies palpitations or racing or irregular heart beat. Denies ankle edema. RESPIRATORY: Denies cough, cold, or chest congestion. Denies shortness of breath, difficulty breathing, or wheezing. GASTROINTESTINAL: abd pain, cramping , nausea GENITOURINARY: Denies difficulty urinating, painful urination, burning, frequency, blood in urine, or discharge. FEMALE GENITOURINARY: Denies vaginal bleeding, heavy or abnormal periods, irregular periods. Denies vaginal discharge or odor. MUSCULOSKELETAL: Denies back or neck pain or stiffness. Denies joint pain or swelling. SKIN: Denies rash, lesions or sores. HEMATOLOGIC : Denies easy bruising or bleeding. LYMPHATIC: Denies swollen, enlarged glands. NEUROLOGICAL: Denies confusion or altered mental status. Denies passing out or loss of consciousness. Denies dizziness or lightheadedness. Denies headache. Denies weakness or paralysis or loss of use of either side. Denies problems with gait or speech. Denies sensory loss, numbness, or tingling. Denies seizures. PSYCHIATRIC: Denies anxiety or stress. Denies depression, suicidal ideation, or homicidal ideation. ALL OTHER SYSTEMS REVIEWED AND NEGATIVE. PHYSICAL EXAMINATION: GENERAL: Well-appearing, well-nourished and in no acute distress. HEAD: Atraumatic, normocephalic. EYES: Pupils equal round and reactive to light, extraocular movements intact, conjunctiva are normal. ENT: Nares patent, oropharynx clear without exudates. Moist mucous membranes. NECK: Normal range of motion, supple without lymphadenopathy LUNGS: Breath sounds clear to auscultation bilaterally and equal. No wheezes rales or rhonchi. HEART: Regular rate and rhythm without murmurs ABDOMEN: Soft, generalized tenderness, nondistended abdomen. No guarding, no rebound. No masses appreciated. Female : deferred Musculoskeletal: Normal range of motion, no pitting or edema. No cyanosis. NEUROLOGICAL: Cranial nerves grossly intact. Normal speech, normal gait. Normal sensory, motor exams PSYCH: Normal mood, normal affect. SKIN: Warm, Dry, normal turgor, no rashes or lesions noted. Dictation was performed using [employer] voice recognition software Physical Exam - Vital signs Vitals: Temp Pulse Resp BP Pulse Ox 98.6 F 78 18 120/79 100 07/15/17 05:27 07/15/17 05:27 07/15/17 05:27 07/15/17 05:27 07/15/17 05:27 Course - Re-evaluation Re-evalutation: 07/15/17 06:22 this appears to be another flare up of patients chronic crohns. Pt is afebrile not in significant distress, will give steroids again but noted my concerns to her about this multiple doses. pt otherwise looks well, labs are pending 07/15/17 06:52 pts labs noted no significant abnormality, will dc home with close follow up pt has infusion set for the nd After performing a Medical Screening Examination, I estimate there is LOW risk for ACUTE APPENDICITIS, BOWEL OBSTRUCTION, ACUTE CHOLECYSTITIS, PERFORATED DIVERTICULITIS, INCARCERATED HERNIA, PANCREATITIS, PELVIC INFLAMMATORY DISEASE, PERFORATED ULCER, ECTOPIC , or TUBO-OVARIAN ABSCESS, thus I consider the discharge disposition reasonable. Also, there is no evidence or peritonitis , sepsis, or toxicity. I have reevaluated this patient multiple times and no significant life threatening changes are noted. The patient and I have discussed the diagnosis and risks, and we agree with discharging home with close follow-up with the understanding that symptoms and presentations can change. We also discussed returning to the Emergency Department immediately if new or worsening symptoms occur. We have discussed the symptoms which are most concerning (e.g., bloody stool, fever, changing or worsening pain, vomiting) that necessitate immediate return. - Vital Signs Vital signs: Temp Pulse Resp BP Pulse Ox 98.6 F 78 18 120/79 100 07/15/17 05:27 07/15/17 05:27 07/15/17 05:27 07/15/17 05:27 07/15/17 05:27 - Laboratory Result Diagrams: 07/15/17 05:45 07/15/17 05:45 Laboratory results interpreted by me: 07/15/17 07/15/17 05:45 05:45 Hgb 11.7 L Hct 35.4 L MCV 77 L MCH 25.2 L RDW 16.2 H Chloride 109 H Carbon Dioxide 21 L Discharge - Discharge Clinical Impression: Nausea Crohn's disease Qualifiers: Gastrointestinal tract location: unspecified location Digestive disease complication type: without complication Qualified Code(s): K50.90 - Crohn's disease, unspecified, without complications Abdominal pain Qualifiers: Abdominal location: generalized Qualified Code(s): R10.84 - Generalized abdominal pain Condition: Stable Disposition: HOME, SELF-CARE Instructions: Abdominal Pain ([facility]), Crohn's Disease ([facility]) Additional Instructions: Please continue with your infusions on the or return immediately if there are any fevers or any other concerns Prescriptions: Oxycodone HCl/Acetaminophen [Percocet 5-325 mg Tablet] 1 - 2 tab PO Q4H PRN #15 tablet PRN Reason: Referrals: KIERA LALA PA-C [Primary Care Provider] - Follow up as needed
[2017-07-15 06:28] LABS: ALANINE AMINOTRANSFERASE 29 U/L (9-52); ALBUMIN 3.7 g/dL (3.5-5.0); ALKALINE PHOSPHATASE 45 U/L (38-126); ANION GAP 12 (5-19); ASPARTATE AMINO TRANSFERASE 18 U/L (14-36); BILIRUBIN,DIRECT 0.2 mg/dL (0.0-0.4); BILIRUBIN,TOTAL 0.4 mg/dL (0.2-1.3); BLOOD UREA NITROGEN 11 mg/dL (7-20); CALCIUM 8.6 mg/dL (8.4-10.2); CARBON DIOXIDE 21 mmol/L (22-30); CHLORIDE 109 mmol/L (98-107); CREATININE RESULT 0.77 mg/dL (0.52-1.25); GLUCOSE 82 mg/dL (75-110); LIPASE 156.1 U/L (23-300); POTASSIUM 4.3 mmol/L (3.6-5.0); SODIUM 141.9 mmol/L (137-145); TOTAL PROTEIN 6.5 g/dL (6.3-8.2)
[2017-07-15 07:48] VITALS: BP 105/72
== END 2017-07-15 07:43 | disposition home or self-care (01) ==
LOC: ER 05:21
DX: K50.90 Crohn's disease, unspecified, without complications (principal); R11.0 Nausea; R10.84 Generalized abdominal pain; I10 Essential (primary) hypertension; Z79.899 Other long term (current) drug therapy; Z91.040 Latex allergy status; Z91.013 Allergy to seafood; Z88.6 Allergy status to analgesic agent; Z88.0 Allergy status to penicillin
CPT/HCPCS: 99284; 96374; 36415; 83690; 84703; 85025; 80053; J2930

== ENCOUNTER 2017-10-17 07:07 | Emergency (ER) | payer OTHER ==
[2017-10-17] MEDS ORDERED: METOCLOPRAMIDE HCL INJ/PF 10 MG/2 ML SDV IV ONE (07:35)
[2017-10-17] MEDS ORDERED: NORMAL SALINE 1000 ML 1,000 ML IV ONE (07:36)
[2017-10-17] MEDS ORDERED: METHYLPREDNISOLONE INJ 125 MG/2 ML SDV IV ONE (07:36)
[2017-10-17] MEDS ORDERED: KETOROLAC TROMETHAMINE INJ/PF 30 MG/1 ML SDV IV ONE (07:37)
--- NOTE | 2017-10-17 07:38 | ER Document Report ---
ED General - General Chief Complaint: Abdominal Pain Stated Complaint: ABDOMINAL PAIN Time Seen by Provider: 10/17/17 07:18 Notes: Patient is a 47-year-old female who presents emergency department with chief complaint of generalized abdominal pain and nausea. Patient states that she feels that this is consistent with her Crohn's disease. Patient states that she went to [employer] last night and was not sure if the color change contain pork which she states typically elicits a flare in the past. She denies any vomiting, fevers, diarrhea, constipation, melena, bright red blood per rectum. States her last bowel movement was yesterday and was normal. She states in the past she is coming here for her past 3 flares was given steroids and pain medication which helped in the past. Patient states that she took Percocet last evening with minimal improvement in her symptoms. Patient is on Remicade for her Crohn's disease. Past medical history significant for Crohn's, hypothyroidism, hypertension Past surgical history 2, hysterectomy in February of this past summer Social history denies any tobacco or drug use. Admits to social alcohol use. Primary care is a [facility] suite, follows with a Dr. Leyva in [place] for gastroenterology TRAVEL OUTSIDE OF THE [place] IN LAST 30 DAYS: No - Related Data Allergies/Adverse Reactions: latex [Latex] Allergy (Severe, Verified 07/15/17 05:28) Shellfish * [Shellfish] Allergy (Severe, Verified 07/15/17 05:28) aspirin Allergy (Intermediate, Verified 07/15/17 05:28) amoxicillin [From Augmentin] Allergy (Verified 07/15/17 05:28) clavulanic acid [From Augmentin] Allergy (Verified 07/15/17 05:28) Past Medical History - Social History Smoking Status: Never Smoker Family History: Reviewed & Not Pertinent - Past Medical History Cardiac Medical History: Reports: Hx Hypertension - ON MEDS Denies: Hx Atrial Fibrillation, Hx Congestive Heart Failure, Hx Coronary Artery Disease, Hx Heart Attack, Hx Hypercholesterolemia, Hx Peripheral Vascular Disease, Hx Pulmonary Embolism, Hx Heart Murmur Pulmonary Medical History: Reports: Hx Bronchitis - DECEMBER 2016 Denies: Hx Asthma, Hx COPD, Hx Pneumonia, Hx Respiratory Failure, Hx Sleep Apnea, Hx Tuberculosis Neurological Medical History: Endocrine Medical History: Reports: Hx Hyperthyroidism. Denies: Hx Graves' Disease, Hx Hypothyroidism Renal/ Medical History: Denies: Hx End Stage Renal Disease, Hx Kidney Stones, Hx Peritoneal Dialysis Malignancy Medical History: Denies: Hx Lung Cancer GI Medical History: Reports: Hx Crohn's Disease. Denies: Hx Gastroesophageal Reflux Disease, Hx Hiatal Hernia, Hx Irritable Bowel, Hx Liver Failure, Hx Pancreatitis, Hx Ulcer Musculoskeltal Medical History: Psychiatric Medical History: Reports: Hx Depression Denies: Hx Bipolar Disorder, Hx Post Traumatic Stress Disorder, Hx Schizophrenia Past Surgical History: Reports: Hx Breast Surgery - aumentation, Hx Section - 2X. Denies: Hx Appendectomy, Hx Bowel Surgery, Hx Cholecystectomy, Hx Colostomy, Hx Coronary Artery Bypass Graft, Hx Gastric Bypass Surgery, Hx Herniorrhaphy, Hx Hysterectomy, Hx Mastectomy, Hx Pacemaker, Hx Tonsillectomy, Hx Tubal Ligation - Immunizations Hx Diphtheria, Pertussis, Tetanus Vaccination: Yes Review of Systems - Review of Systems Notes: REVIEW OF SYSTEMS: CONSTITUTIONAL : Denies fever, chills, or sweats. Denies recent illness. CARDIOVASCULAR: Denies chest pain. Denies palpitations or racing or irregular heart beat. Denies ankle edema. RESPIRATORY: Denies cough, cold, or chest congestion. Denies shortness of breath, difficulty breathing, or wheezing. GASTROINTESTINAL: See HPI. Denies distention. Denies vomiting, or diarrhea. Denies blood in vomitus, stools, or per rectum. Denies black, tarry stools. Denies constipation. GENITOURINARY: Denies difficulty urinating, painful urination, burning, frequency, blood in urine, or discharge. MUSCULOSKELETAL: Denies any muscle spasms, difficulty walking, extremity pain SKIN: Denies rash, lesions or sores. NEUROLOGICAL: Denies confusion or altered mental status. Denies passing out or loss of consciousness. Denies dizziness or lightheadedness. Denies headache. Denies weakness or paralysis or loss of use of either side. Denies problems with gait or speech. Denies sensory loss, numbness, or tingling. Denies seizures. PSYCHIATRIC: Denies anxiety or stress. Denies depression, suicidal ideation, or homicidal ideation. ALL OTHER SYSTEMS REVIEWED AND NEGATIVE. Dictation was performed using [employer] voice recognition software Physical Exam - Vital signs Vitals: Temp Pulse Resp BP Pulse Ox 98.4 F 74 16 124/82 100 10/17/17 07:11 10/17/17 07:11 10/17/17 07:11 10/17/17 07:11 10/17/17 07:11 - Notes Notes: PHYSICAL EXAM GENERAL: Alert, interacts well. HEAD: Normocephalic, atraumatic. EYES: Pupils equal, round, and reactive to light. Extraocular movements intact. ENT: Oral mucosa moist, tongue midline. NECK: Full range of motion. Supple. Trachea midline. LUNGS: Clear to auscultation bilaterally, no wheezes, rales, or rhonchi. No respiratory distress. HEART: Regular rate and rhythm. No murmurs, gallops, or rubs. ABDOMEN: Soft, nondistended, mild generalized abdominal tenderness without focal severity. No guarding, rebound, or rigidity.. Bowel sounds present in all 4 quadrants. EXTREMITIES: Moves all 4 extremities spontaneously. No edema, radial and dorsalis pedis pulses 2/4 bilaterally. No cyanosis. NEUROLOGICAL: Alert and oriented x4. Normal speech. PSYCH: Normal affect, normal mood. SKIN: Warm, dry, normal turgor. No rashes or lesions noted. Course - Re-evaluation Re-evalutation: 10/17/17 09:18 Patient's presentation is consistent with Crohn's flare. Patient feels much better after medications. Serial abdominal exams without any focal abdominal tenderness on multiple examinations. CBC stable without evidence of leukocytosis or anemia. No evidence of acute abnormalities. Patient tolerating p.o. without any difficulty. Discussed will discharge her home with steroid and minimal pain medication with instruction to follow-up with her overseamer. Discussed strict return precautions and patient stable for discharge home. - Vital Signs Vital signs: Temp Pulse Resp BP Pulse Ox 98.0 F 90 16 113/79 97 10/17/17 09:47 10/17/17 09:47 10/17/17 09:47 10/17/17 09:47 10/17/17 09:47 - Laboratory Result Diagrams: 10/17/17 07:33 10/17/17 07:33 Laboratory results interpreted by me: 10/17/17 10/17/17 10/17/17 07:33 07:33 07:53 MCV 79 L MCH 26.3 L RDW 14.8 H Carbon Dioxide 21 L Glucose 111 H Urine Ascorbic Acid 40 H Discharge - Discharge Clinical Impression: Crohns disease Qualifiers: Gastrointestinal tract location: large intestine Digestive disease complication type: without complication Qualified Code(s): K50.10 - Crohn's disease of large intestine without complications Condition: Good Disposition: HOME, SELF-CARE Instructions: Crohn's Disease ([facility]) Additional Instructions: Please follow-up with your overseamer in 3-5 days. Prescriptions: Tramadol HCl 50 mg PO Q8HP PRN #6 tablet PRN Reason: Prednisone [Deltasone 20 mg Tablet] 3 tab PO DAILY 5 Days tablet Forms: Return to Work Referrals: KIERA LALA PA-C [Primary Care Provider] - Follow up in 1 week
[2017-10-17 07:51] LABS: ABSOLUTE BASOPHILS # (AUTO) 0.1 10^3/uL (0.0-0.2); ABSOLUTE LYMPHOCYTES (AUTO) 1.9 10^3/uL (0.5-4.7); ABSOLUTE MONOCYTES (AUTO) 0.3 10^3/uL (0.1-1.4); ABSOLUTE NEUT (AUTO) 7.3 10^3/uL (1.7-8.2); BASOPHILS % (AUTO) 0.7 % (0-2); EOSINOPHILS % (AUTO) 0.1 % (0-6); HEMOGLOBIN 12.9 g/dL (12.0-15.5); LYMPHOCYTES % (AUTO) 19.8 % (13-45); MEAN CORPUSCULAR HEMOGLOBIN 26.3 pg (27.0-33.4); MEAN CORPUSCULAR HGB CONC 33.2 g/dL (32.0-36.0); MEAN CORPUSCULAR VOLUME 79 fl (80-97); MONOCYTES % (AUTO) 3.5 % (3-13); PLATELET COUNT 324 10^3/uL (150-450); RED BLOOD COUNT 4.92 10^6/uL (3.72-5.28); RED CELL DISTRIBUTION WIDTH 14.8 % (11.5-14.0); SEGMENTED NEUTROPHILS % (AUTO) 75.9 % (42-78); TOTAL CELLS COUNTED % (AUTO) 100 %; WHITE BLOOD COUNT 9.6 10^3/uL (4.0-10.5)
[2017-10-17 08:09] LABS: ALANINE AMINOTRANSFERASE 43 U/L (9-52); ALBUMIN 4.7 g/dL (3.5-5.0); ALKALINE PHOSPHATASE 52 U/L (38-126); ANION GAP 14 (5-19); ASPARTATE AMINO TRANSFERASE 25 U/L (14-36); BILIRUBIN,DIRECT 0.2 mg/dL (0.0-0.4); BILIRUBIN,TOTAL 0.3 mg/dL (0.2-1.3); BLOOD UREA NITROGEN 11 mg/dL (7-20); CALCIUM 9.6 mg/dL (8.4-10.2); CARBON DIOXIDE 21 mmol/L (22-30); CHLORIDE 105 mmol/L (98-107); GLUCOSE 111 mg/dL (75-110); LIPASE 92.9 U/L (23-300); POTASSIUM 4.6 mmol/L (3.6-5.0); SODIUM 139.8 mmol/L (137-145); TOTAL PROTEIN 7.6 g/dL (6.3-8.2)
[2017-10-17 08:24] LABS: APPEARANCE,URINE SLIGHTLY-CLOUDY; BILIRUBIN,URINE NEGATIVE (NEGATIVE); COLOR,URINE YELLOW; GLUCOSE, URINE NEGATIVE (NEGATIVE); KETONES,URINE NEGATIVE (NEGATIVE); LEUKOCYTE ESTERASE,URINE NEGATIVE (NEGATIVE); NITRITE,URINE NEGATIVE (NEGATIVE); PROTEIN,URINE NEGATIVE (NEGATIVE); URINE SPECIFIC GRAVITY 1.021; UROBILINOGEN,URINE NEGATIVE mg/dL (<2.0)
[2017-10-17 10:45] VITALS: BP 113/79
== END 2017-10-17 09:47 | disposition home or self-care (01) ==
LOC: ER 07:07
DX: K50.10 Crohn's disease of large intestine without complications (principal); Z79.899 Other long term (current) drug therapy; R10.84 Generalized abdominal pain; R11.0 Nausea; I10 Essential (primary) hypertension; Z91.040 Latex allergy status; Z91.013 Allergy to seafood; Z88.6 Allergy status to analgesic agent; Z88.0 Allergy status to penicillin
CPT/HCPCS: 99284; 96361; 96374; 96375; 36415; 83690; 85025; 80053; 81001; J2930; J1885; J2765; J7030

== ENCOUNTER 2017-10-18 05:44 | Inpatient (IN) | payer OTHER ==
[2017-10-18] MEDS ORDERED: NORMAL SALINE 1000 ML 1,000 ML IV ONE (06:23)
[2017-10-18] MEDS ORDERED: MORPHINE SULFATE 10 MG/ML INJ IV ONE ×2 (06:23→08:22)
[2017-10-18] MEDS ORDERED: ONDANSETRON HCL INJ/PF 4 MG/2 ML SDV IV ONE ×2 (06:23→08:22)
--- NOTE | 2017-10-18 07:07 | ER Document Report ---
ED GI/ - General Chief Complaint: Abdominal Pain Stated Complaint: ABDOMINAL PAIN Time Seen by Provider: 10/18/17 06:04 Notes: The patient is a 47-year-old female, past medical history Crohn's, presents with worsening upper and lower abdominal pain and nausea. She was seen in the ER yesterday, had normal blood work and discharged home on prednisone and tramadol for a presumed Crohn's flare. She usually feels much better after steroids, but she said the pain is now worsening. Her GI doctor is at [facility] and she is taking Remicade daily. Patient denies diarrhea, vomiting, fevers, urinary symptoms, chest pain, shortness of breath, flank pain or back pain. TRAVEL OUTSIDE OF THE [place] IN LAST 30 DAYS: No - Related Data Allergies/Adverse Reactions: latex [Latex] Allergy (Severe, Verified 07/15/17 05:28) Shellfish * [Shellfish] Allergy (Severe, Verified 07/15/17 05:28) aspirin Allergy (Intermediate, Verified 07/15/17 05:28) amoxicillin [From Augmentin] Allergy (Verified 07/15/17 05:28) clavulanic acid [From Augmentin] Allergy (Verified 07/15/17 05:28) Past Medical History - General Information source: Patient - Social History Smoking Status: Unknown if Ever Smoked Family History: Reviewed & Not Pertinent - Past Medical History Cardiac Medical History: Reports: Hx Hypertension - ON MEDS Denies: Hx Atrial Fibrillation, Hx Congestive Heart Failure, Hx Coronary Artery Disease, Hx Heart Attack, Hx Hypercholesterolemia, Hx Peripheral Vascular Disease, Hx Pulmonary Embolism, Hx Heart Murmur Pulmonary Medical History: Reports: Hx Bronchitis - DECEMBER 2016 Denies: Hx Asthma, Hx COPD, Hx Pneumonia, Hx Respiratory Failure, Hx Sleep Apnea, Hx Tuberculosis Neurological Medical History: Endocrine Medical History: Reports: Hx Hyperthyroidism. Denies: Hx Graves' Disease, Hx Hypothyroidism Renal/ Medical History: Denies: Hx End Stage Renal Disease, Hx Kidney Stones, Hx Peritoneal Dialysis Malignancy Medical History: Denies: Hx Lung Cancer GI Medical History: Reports: Hx Crohn's Disease. Denies: Hx Gastroesophageal Reflux Disease, Hx Hiatal Hernia, Hx Irritable Bowel, Hx Liver Failure, Hx Pancreatitis, Hx Ulcer Musculoskeltal Medical History: Psychiatric Medical History: Reports: Hx Depression Denies: Hx Bipolar Disorder, Hx Post Traumatic Stress Disorder, Hx Schizophrenia Past Surgical History: Reports: Hx Breast Surgery - aumentation, Hx Section - 2X. Denies: Hx Appendectomy, Hx Bowel Surgery, Hx Cholecystectomy, Hx Colostomy, Hx Coronary Artery Bypass Graft, Hx Gastric Bypass Surgery, Hx Herniorrhaphy, Hx Hysterectomy, Hx Mastectomy, Hx Pacemaker, Hx Tonsillectomy, Hx Tubal Ligation - Immunizations Hx Diphtheria, Pertussis, Tetanus Vaccination: Yes Review of Systems - Review of Systems Notes: REVIEW OF SYSTEMS: CONSTITUTIONAL: -fevers, -chills EENT: -eye pain, -difficulty swallowing, -nasal congestion CARDIOVASCULAR: -chest pain, -syncope. RESPIRATORY: -cough, -SOB GASTROINTESTINAL: +abdominal pain, +nausea, -vomiting, -diarrhea GENITOURINARY: -dysuria, -hematuria MUSCULOSKELETAL: -back pain, -neck pain SKIN: -rash or skin lesions. HEMATOLOGIC: -easy bruising or bleeding. LYMPHATIC: -swollen, enlarged glands. NEUROLOGICAL: -altered mental status or loss of consciousness, -headache, - neurologic symptoms PSYCHIATRIC: -anxiety, -depression. ALL OTHER SYSTEMS REVIEWED AND NEGATIVE. Physical Exam - Vital signs Vitals: Temp Pulse Resp BP Pulse Ox 97.7 F 86 19 134/94 H 98 10/18/17 05:47 10/18/17 05:47 10/18/17 05:47 10/18/17 05:47 10/18/17 05:47 - Notes Notes: PHYSICAL EXAMINATION: GENERAL: Uncomfortable. HEAD: Atraumatic, normocephalic. EYES: Pupils equal round and reactive to light, extraocular movements intact, sclera anicteric, conjunctiva are normal. ENT: nares patent, oropharynx clear without exudates. Moist mucous membranes. NECK: Normal range of motion, supple without lymphadenopathy LUNGS: Breath sounds clear to auscultation bilaterally and equal. No wheezes rales or rhonchi. HEART: Regular rate and rhythm without murmurs ABDOMEN: Soft, tenderness in epigastric and lower abdomen, normoactive bowel sounds. +guarding, no rebound. No masses appreciated. EXTREMITIES: Normal range of motion, no pitting or edema. No cyanosis. NEUROLOGICAL: Cranial nerves grossly intact. Normal speech, normal gait. Normal sensory and motor exams. PSYCH: Normal mood, normal affect. SKIN: Warm, Dry, normal turgor, no rashes or lesions noted. Course - Re-evaluation Re-evalutation: Patient with worsening nausea, vomiting and diffuse abdominal distention. Concern for obstruction with her history of Crohn's. Will obtain CT abdomen pelvis w/ PO and IV contrast. 10/18/17 10:25 Pt with bowel obstruction on CT scan most likely due to terminal ileum scarring. Spoke to surgicalist production engineer, Dr. Stewart, and he will be down to see patient. Patient aware of diagnosis and plan for NGT placement. 10/18/17 11:[address] Stewart and he recommends medical management of the mechanical obstruction due to terminal ileitis from her Crohn's. He spoke to Dr. Rdz (GI) and he will follow the patient while she is in the hospital. Recommends admission to medicine and Surgery and GI will consult. Pt feels much better after NGT placement. 10/18/17 12:[address] Brown (Hospitalist) and he will admit patient to medical floor for further evaluation and treatment. - Vital Signs Vital signs: Temp Pulse Resp BP Pulse Ox 97.7 F 86 22 H 125/87 H 93 10/18/17 05:47 10/18/17 05:47 10/18/17 10:01 10/18/17 10:01 10/18/17 10:01 - Laboratory Result Diagrams: 10/18/17 06:50 10/18/17 06:50 Laboratory results interpreted by me: 10/18/17 10/18/17 10/18/17 06:50 06:50 06:50 WBC 19.7 H D MCH 26.5 L RDW 14.4 H Seg Neutrophils % 84.8 H Lymphocytes % 9.2 L Absolute Neutrophils 16.7 H Glucose 116 H Lactic Acid 2.2 H Urine Ascorbic Acid 10/18/17 08:53 WBC MCH RDW Seg Neutrophils % Lymphocytes % Absolute Neutrophils Glucose Lactic Acid Urine Ascorbic Acid 40 H - Diagnostic Test Radiology reviewed: Image reviewed, Reports reviewed Radiology results interpreted by me: CT A/P 1. IRREGULAR BOWEL WALL THICKENING INVOLVING THE TERMINAL ILEUM WHICH MAY BE DUE TO CHRONIC INFLAMMATION AND/OR SCARRING. THERE IS PROMINENT DILATION OF THE SMALL BOWEL PROXIMALLY CONSISTENT WITH MECHANICAL OBSTRUCTION. SMALL AMOUNT OF FREE FLUID IN THE PELVIS. 2. NO OTHER SIGNIFICANT OR ACUTE FINDING IN THE ABDOMEN OR PELVIS ON CT SCAN WITH IV CONTRAST. Discharge - Discharge Clinical Impression: Mechanical obstruction of the intestine Crohn's disease Qualifiers: Gastrointestinal tract location: unspecified location Digestive disease complication type: with intestinal obstruction Qualified Code(s): K50.912 - Crohn's disease, unspecified, with intestinal obstruction Condition: Stable Disposition: ADMITTED INPATIENT Admitting Provider: [facility] Unit Admitted: Medical Floor Referrals: KIERA LALA PA-C [Primary Care Provider] - Follow up as needed
[2017-10-18 07:15] LABS: ABSOLUTE BASOPHILS # (AUTO) 0.1 10^3/uL (0.0-0.2); ABSOLUTE LYMPHOCYTES (AUTO) 1.8 10^3/uL (0.5-4.7); ABSOLUTE MONOCYTES (AUTO) 1.1 10^3/uL (0.1-1.4); ABSOLUTE NEUT (AUTO) 16.7 10^3/uL (1.7-8.2); BASOPHILS % (AUTO) 0.4 % (0-2); HEMATOCRIT 38.7 % (36.0-47.0); HEMOGLOBIN 12.9 g/dL (12.0-15.5); LYMPHOCYTES % (AUTO) 9.2 % (13-45); MEAN CORPUSCULAR HEMOGLOBIN 26.5 pg (27.0-33.4); MEAN CORPUSCULAR HGB CONC 33.2 g/dL (32.0-36.0); MEAN CORPUSCULAR VOLUME 80 fl (80-97); MONOCYTES % (AUTO) 5.6 % (3-13); PLATELET COUNT 307 10^3/uL (150-450); RED BLOOD COUNT 4.84 10^6/uL (3.72-5.28); RED CELL DISTRIBUTION WIDTH 14.4 % (11.5-14.0); SEGMENTED NEUTROPHILS % (AUTO) 84.8 % (42-78); TOTAL CELLS COUNTED % (AUTO) 100 %
[2017-10-18 07:20] LABS: WHITE BLOOD COUNT 19.7 10^3/uL (4.0-10.5)
[2017-10-18 07:27] LABS: ALANINE AMINOTRANSFERASE 36 U/L (9-52); ALBUMIN 4.1 g/dL (3.5-5.0); ALKALINE PHOSPHATASE 45 U/L (38-126); ANION GAP 11 (5-19); ASPARTATE AMINO TRANSFERASE 25 U/L (14-36); BILIRUBIN,DIRECT 0.3 mg/dL (0.0-0.4); BILIRUBIN,TOTAL 0.3 mg/dL (0.2-1.3); BLOOD UREA NITROGEN 16 mg/dL (7-20); CALCIUM 9.1 mg/dL (8.4-10.2); CARBON DIOXIDE 25 mmol/L (22-30); CHLORIDE 105 mmol/L (98-107); GLUCOSE 116 mg/dL (75-110); LIPASE 80.2 U/L (23-300); POTASSIUM 3.8 mmol/L (3.6-5.0); TOTAL PROTEIN 7.6 g/dL (6.3-8.2)
--- NOTE | 2017-10-18 09:44 | RADIOLOGY REPORT (SQ) ---
EXAM DESCRIPTION: CT ABD/PELVIS WITH IV ORAL COMPLETED DATE/TIME: 10/18/2017 9:28 am REASON FOR STUDY: crohn's, worsening diffuse abdominal pain COMPARISON: None. TECHNIQUE: CT scan of the abdomen and pelvis performed using helical scanning technique with dynamic intravenous contrast injection. No oral contrast. Images reviewed with lung, soft tissue, and bone windows. Reconstructed coronal and sagittal MPR images reviewed. Delayed images for evaluation of the urinary system also acquired. All images stored on PACS. All CT scanners at this facility use dose modulation, iterative reconstruction, and/or weight based d osing when appropriate to reduce radiation dose to as low as reasonably achievable (ALARA). [facility]: Dose Right [facility]: CareDose [facility]: Dose Right [facility]: Teradose 4D [facility]: [employer] CONTRAST TYPE AND DOSE: contrast/concentration: Isovue 370.00 mg/ml; Total Contrast Delivered: 95.0 ml; Total Saline Delivered: 55.1 ml RENAL FUNCTION: BUN 16 creatinine 0.74. RADIATION DOSE: CT Rad equipment meets quality standard of care and radiation dose reduction techniq ues were employed. CTDIvol: 9.6 - 13.5 mGy. DLP: 1231 mGy-cm.. LIMITATIONS: None. FINDINGS: LOWER CHEST: No significant findings. No nodules or infiltrates. LIVER: Normal size. Diffuse fatty infiltration. No masses. No dilated ducts. SPLEEN: Normal size. No focal lesions. PANCREAS: No masses. No significant calcifications. No adjacent inflammation or peripancreatic fluid collections. Pancreatic duct not dilated. GALLBLADDER: No identified stones by CT criteria. No inflammatory changes to suggest cholecystitis. ADRENAL GLANDS: No significant masses or asymmetry. RIGHT KIDNEY AND URETER: No solid masses. No significant calcifications. No hydronephrosis or hyd roureter. LEFT KIDNEY AND URETER: No solid masses. No significant calcifications. No hydronephrosis or hydr oureter. AORTA AND VESSELS: No aneurysm. No dissection. Renal arteries, SMA, celiac without stenosis. RETROPERITONEUM: No retroperitoneal adenopathy, hemorrhage or masses. BOWEL AND PERITONEAL CAVITY: Irregular bowel wall thickening involving several cm of the terminal ile um. Proximal to this there is prominent dilation of the small bowel. No significant free fluid in t he abdomen. APPENDIX: Normal. PELVIS: No mass. Small amount of free fluid. Normal bladder. ABDOMINAL WALL: No masses. No hernias. BONES: No significant or acute findings. OTHER: No other significant finding. IMPRESSION: 1. IRREGULAR BOWEL WALL THICKENING INVOLVING THE TERMINAL ILEUM WHICH MAY BE DUE TO CHRONIC INFLAMMAT ION AND/OR SCARRING. THERE IS PROMINENT DILATION OF THE SMALL BOWEL PROXIMALLY CONSISTENT WITH MECHA NICAL OBSTRUCTION. SMALL AMOUNT OF FREE FLUID IN THE PELVIS. 2. NO OTHER SIGNIFICANT OR ACUTE FINDING IN THE ABDOMEN OR PELVIS ON CT SCAN WITH IV CONTRAST. TECHNICAL DOCUMENTATION: JOB ID: [id number] Quality ID # [id number]: Final reports with documentation of one or more dose reduction techniques (e.g., Au tomated exposure control, adjustment of the mA and/or kV according to patient size, use of iterative reconstruction technique) 2010 [employer]- All Rights Reserved Reading location - IP/workstation name: [email or web address]
[2017-10-18] MEDS ORDERED: MIDAZOLAM 2 MG/2 ML INJ IV ONE (10:24)
[2017-10-18] MEDS ORDERED: HYDROMORPHONE HCL INJ/PF 2 MG/ML AMPULE IV ONE (10:24)
[2017-10-18] MEDS: NORMAL SALINE 1000 ML 1,000 ML IV PRN ×2 (11:13→17:06)
[2017-10-18] MEDS ORDERED: METHYLPREDNISOLONE INJ 125 MG/2 ML SDV IV ONE ×2 (11:26→13:30)
[2017-10-18 12:08] LABS: AMORPHOUS SEDIMENT,URINE 2+ /HPF; APPEARANCE,URINE TURBID; BILIRUBIN,URINE NEGATIVE (NEGATIVE); COLOR,URINE YELLOW; GLUCOSE, URINE NEGATIVE (NEGATIVE); KETONES,URINE NEGATIVE (NEGATIVE); LEUKOCYTE ESTERASE,URINE NEGATIVE (NEGATIVE); NITRITE,URINE NEGATIVE (NEGATIVE); PROTEIN,URINE NEGATIVE (NEGATIVE); URINE SPECIFIC GRAVITY 1.033; UROBILINOGEN,URINE NEGATIVE mg/dL (<2.0)
[2017-10-18] MEDS ORDERED: ONDANSETRON HCL INJ/PF 4 MG/2 ML SDV IV PRN (12:34)
[2017-10-18] MEDS ORDERED: DEXTROSE 40% GEL 15 GM TUBE PO PRN ×2 (12:34)
[2017-10-18] MEDS ORDERED: GLUCAGON,HUMAN RECOMB 1 MG INJ SUBCUT PRN (12:34)
[2017-10-18] MEDS ORDERED: DEXTROSE 50%-WATER 25 GM/50 ML DISP.SYRIN IV PRN ×2 (12:34)
[2017-10-18] MEDS ORDERED: IPRATROPIUM/ALBUTEROL 0.5-2.5 MG/3 ML AMPUL NEB PRN (12:34)
[2017-10-18] MEDS ORDERED: MORPHINE SULFATE 10 MG/ML INJ IV PRN (12:42)
[2017-10-18] MEDS ORDERED: LORAZEPAM INJ 2 MG/1 ML VIAL IV PRN (12:47)
--- NOTE | 2017-10-18 12:53 | RADIOLOGY REPORT (SQ) ---
EXAM DESCRIPTION: CHEST SINGLE VIEW COMPLETED DATE/TIME: 10/18/2017 12:41 pm REASON FOR STUDY: leukocytosis COMPARISON: None. EXAM PARAMETERS: NUMBER OF VIEWS: One view. TECHNIQUE: Single frontal radiographic view of the chest acquired. RADIATION DOSE: NA LIMITATIONS: None. FINDINGS: LUNGS AND PLEURA: There is no acute infiltrate or effusion. There is no mass. MEDIASTINUM AND HILAR STRUCTURES: No masses. Contour normal. HEART AND VASCULAR STRUCTURES: Heart normal in size. Normal vasculature. BONES: No acute findings. HARDWARE: An NG tube extends to the stomach. OTHER: No other significant finding. IMPRESSION: No acute cardiopulmonary disease. TECHNICAL DOCUMENTATION: JOB ID: [id number] [employer]- All Rights Reserved Reading location - IP/workstation name: [email or web address]
[2017-10-18] MEDS ORDERED: HYDRALAZINE HCL INJ/PF 20 MG/1 ML SDV IV PRN (13:00)
[2017-10-18] MEDS ORDERED: FENTANYL 25 MCG/HR PATCH.TD72 TD SCH (14:00)
[2017-10-18] MEDS: CIPROFLOXACIN 400 MG/D5W RTU 400 MG/200 ML RTUPB IV SCH (14:23)
--- NOTE | 2017-10-18 18:11 | PDOC CONSULTATION ---
Consultation Consult Date: 10/18/17 Attending physician:: JOSH HERNANDEZ Consult reason:: Crohn's disease with small bowel obstruction History of Present Illness Admission Date/PCP: 10/18/17 12:31 KIERA LALA PA-C History of Present Illness: ADITYA ONTIVEROS is a 47 year old female with a past medical history significant for Crohn's disease diagnosed 7 years ago. She initially was seeing Dr Hunt but now sees Dr Leyva [facility] [place]. She gets treated with Remicade every 8 weeks, the last treatment being July 2017. She had been to the ER with acute abdominal pain and was diagnosed with a flare up of her Crohn's. She was started on oral steroids but the pain persisted and overnight with four episodes of vomiting and so she represented today to the ER. A CT abdomen/ pelvis was obtained in the ER that was suggestive of small bowel obstruction. Past Medical History Cardiac Medical History: Reports: Hypertension - ON MEDS Denies: Atrial Fibrillation, Congestive Heart Failure, Coronary Artery Disease, Myocardial Infarction, Hyperlipidema, Peripheral Vascular Disease, Pulmonary Embolism, Heart Murmur Pulmonary Medical History: Reports: Bronchitis - DECEMBER 2016 Denies: Asthma, Chronic Obstructive Pulmonary Disease (COPD), Pneumonia, Respiratory Failure, Sleep Apnea, Tuberculosis Endocrine Medical History: Reports: Hyperthyroidism Denies: Hypothyroidism Renal/ Medical History: Denies: End Stage Renal Disease Malignancy Medical History: Denies: Lung Cancer GI Medical History: Reports: Crohn's Disease Denies: Gastroesophageal Reflux Disease, Hiatal Hernia Musculoskeltal Medical History: Psychiatric Medical History: Reports: Depression Denies: Bipolar Disorder, Post Traumatic Stress Disorder Hematology: Past Surgical History Past Surgical History: Reports: Section - 2X Denies: Appendectomy, Cholecystectomy, Colostomy, Coronary Artery Bypass Graft, Gastric Bypass Surgery, Herniorrhaphy, Hysterectomy, Mastectomy, Pacemaker, Tonsillectomy, Tubal Ligation Social History Smoking Status: Unknown if Ever Smoked Hx Recreational Drug Use: No Hx Prescription Drug Abuse: No Family History Family History: Reviewed & Not Pertinent Parental Family History Reviewed: No Children Family History Reviewed: Unknown Sibling(s) Family History Reviewed.: Unknown Medication/Allergy Home Medications: Levothyroxine Sodium [Synthroid] 112 mcg PO Q6AM 10/18/17 Valsartan/Hydrochlorothiazide [Valsartan-Hctz 80-12.5 mg Tab] 1 tab PO DAILY Allergies/Adverse Reactions: latex [Latex] Allergy (Severe, Verified 07/15/17 05:28) Shellfish * [Shellfish] Allergy (Severe, Verified 07/15/17 05:28) aspirin Allergy (Intermediate, Verified 07/15/17 05:28) amoxicillin [From Augmentin] Allergy (Verified 07/15/17 05:28) clavulanic acid [From Augmentin] Allergy (Verified 07/15/17 05:28) Review of Systems Constitutional: ABSENT: chills, fever(s), headache(s), weight gain, weight loss Eyes: ABSENT: visual disturbances Ears: ABSENT: hearing changes Cardiovascular: ABSENT: chest pain, dyspnea on exertion, edema, orthropnea, palpitations Respiratory: ABSENT: cough, hemoptysis Gastrointestinal: PRESENT: abdominal pain, nausea, vomiting Genitourinary: ABSENT: dysuria, hematuria Musculoskeletal: ABSENT: joint swelling Integumentary: ABSENT: rash, wounds Neurological: ABSENT: abnormal gait, abnormal speech, confusion, dizziness, focal weakness, syncope Psychiatric: ABSENT: anxiety, depression, homidical ideation, suicidal ideation Physical Exam Vital Signs: Temp Pulse Resp BP Pulse Ox 97.6 F 91 17 107/62 95 10/18/17 15:13 10/18/17 15:13 10/18/17 13:37 10/18/17 15:13 10/18/17 15:13 General appearance: PRESENT: mild distress Head exam: PRESENT: atraumatic, normocephalic Eye exam: PRESENT: conjunctiva pink, EOMI, PERRLA. ABSENT: scleral icterus Ear exam: PRESENT: normal external ear exam Neck exam: ABSENT: carotid bruit, JVD, lymphadenopathy, thyromegaly Respiratory exam: PRESENT: clear to auscultation compa. ABSENT: rales, rhonchi, wheezes Cardiovascular exam: PRESENT: RRR. ABSENT: diastolic murmur, rubs, systolic murmur GI/Abdominal exam: PRESENT: guarding, tenderness Rectal exam: PRESENT: deferred Neurological exam: PRESENT: alert, awake, oriented to person, oriented to place , oriented to time, oriented to situation, CN II-XII grossly intact. ABSENT: motor sensory deficit Psychiatric exam: PRESENT: appropriate affect, normal mood. ABSENT: homicidal ideation, suicidal ideation Results Impressions: Abdomen/Pelvis CT 10/18/17 00:00 IMPRESSION: 1. IRREGULAR BOWEL WALL THICKENING INVOLVING THE TERMINAL ILEUM WHICH MAY BE DUE TO CHRONIC INFLAMMATION AND/OR SCARRING. THERE IS PROMINENT DILATION OF THE SMALL BOWEL PROXIMALLY CONSISTENT WITH MECHANICAL OBSTRUCTION. SMALL AMOUNT OF FREE FLUID IN THE PELVIS. 2. NO OTHER SIGNIFICANT OR ACUTE FINDING IN THE ABDOMEN OR PELVIS ON CT SCAN WITH IV CONTRAST. Chest X-Ray 10/18/17 12:12 IMPRESSION: No acute cardiopulmonary disease. Assessment & Plan - Diagnosis (1) Crohn's disease of ileum with intestinal obstruction Is this a current diagnosis for this admission?: Yes (2) Crohns disease Qualifiers: Gastrointestinal tract location: unspecified location Digestive disease complication type: with intestinal obstruction Qualified Code(s): K50.912 - Crohn's disease, unspecified, with intestinal obstruction Is this a current diagnosis for this admission?: Yes (3) Mechanical obstruction of the intestine Is this a current diagnosis for this admission?: Yes - Plan Summary Plan Summary: The patient should be admitted to the medical service and medical management of the acute Crohn's flare continued. I spoke with the [employer] compliance coordinator wildlife policy professional - Dr Choudhary - and he is willing to be involved in her care. Surgery will be on stand-by if needed for a definitive surgical intervention but none is needed at this time.
[2017-10-18] MEDS: METRONIDAZOLE 500 MG/NS RTU 100 ML IV SCH ×2 (18:18→22:29)
[2017-10-18] MEDS: METHYLPREDNISOLONE INJ 125 MG/2 ML SDV IV SCH (18:27)
[2017-10-19] MEDS: METHYLPREDNISOLONE INJ 125 MG/2 ML SDV IV SCH ×4 (00:19→18:05)
[2017-10-19] MEDS ORDERED: CIPROFLOXACIN 400 MG/D5W RTU 400 MG/200 ML RTUPB IV ONE (03:18)
[2017-10-19] MEDS: CIPROFLOXACIN 400 MG/D5W RTU 400 MG/200 ML RTUPB IV SCH ×2 (03:37→13:16)
--- NOTE | 2017-10-19 05:58 | PDOC H&P ---
History of Present Illness Admission Date/PCP: 10/18/17 12:31 KIERAJESSICA LALA PA-C Patient complains of: Severe abdominal pain, nausea and vomiting this morning at 3 AM History of Present Illness: ADTIYA ONTIVEROS is a 47 year old female 37-year-old female with a past medical history significant for hypertension, Crohn's disease, hypothyroidism, and hiatal hernia. Patient describes awaking this morning periodically with abdominal pain. States that at 3 AM she began having severe nausea and vomiting. Describes 4 episodes of vomiting non-bloody nonbilious. He presents to the emergency department with continued belly pain. CT abdomen pelvis shows inflammatory changes around her terminal ileum consistent with her Crohn's flare. Unsure if these changes have a chronic component. Patient started on IV pain medicine and given a fluid bolus. She qualifies for sepsis with an elevated leukocytosis, tachycardia, with a GI source elevated lactic acid. Received 1 L of IV fluid bolus. Being placed on a fluid rate. Patient is normally suppressed on Remicade. States that she has been on Remicade since 2011. She had a period between February to July of last year in which she was not able to get Remicade due to cost/insurance reasons. She states that she has been consistent on Remicade since July. Describes approximately 3 episodes in which she sought ER treatment for possible Crohn's flares in 2016. Past Medical History Cardiac Medical History: Reports: Hypertension - ON MEDS Denies: Atrial Fibrillation, Congestive Heart Failure, Coronary Artery Disease, Myocardial Infarction, Hyperlipidema, Peripheral Vascular Disease, Pulmonary Embolism, Heart Murmur Pulmonary Medical History: Reports: Bronchitis - DECEMBER 2016 Denies: Asthma, Chronic Obstructive Pulmonary Disease (COPD), Pneumonia, Respiratory Failure, Sleep Apnea, Tuberculosis Endocrine Medical History: Reports: Hyperthyroidism Denies: Hypothyroidism Renal/ Medical History: Denies: End Stage Renal Disease Malignancy Medical History: Denies: Lung Cancer GI Medical History: Reports: Crohn's Disease Denies: Gastroesophageal Reflux Disease, Hiatal Hernia Musculoskeltal Medical History: Psychiatric Medical History: Reports: Depression Denies: Bipolar Disorder, Post Traumatic Stress Disorder Hematology: Past Surgical History Past Surgical History: Reports: Section - 2X Denies: Appendectomy, Cholecystectomy, Colostomy, Coronary Artery Bypass Graft, Gastric Bypass Surgery, Herniorrhaphy, Hysterectomy, Mastectomy, Pacemaker, Tonsillectomy, Tubal Ligation Social History Smoking Status: Unknown if Ever Smoked Hx Recreational Drug Use: No Hx Prescription Drug Abuse: No Family History Family History: Reviewed & Not Pertinent Parental Family History Reviewed: Yes - Describes hypertension in both parents. mother with diverticulitis Children Family History Reviewed: No Sibling(s) Family History Reviewed.: No Medication/Allergy Home Medications: Levothyroxine Sodium [Synthroid] 112 mcg PO Q6AM 10/18/17 Valsartan/Hydrochlorothiazide [Valsartan-Hctz 80-12.5 mg Tab] 1 tab PO DAILY Allergies/Adverse Reactions: latex [Latex] Allergy (Severe, Verified 07/15/17 05:28) Shellfish * [Shellfish] Allergy (Severe, Verified 07/15/17 05:28) aspirin Allergy (Intermediate, Verified 07/15/17 05:28) amoxicillin [From Augmentin] Allergy (Verified 07/15/17 05:28) clavulanic acid [From Augmentin] Allergy (Verified 07/15/17 05:28) Review of Systems Constitutional: ABSENT: anorexia, headache(s) Eyes: ABSENT: visual disturbances Ears: ABSENT: hearing changes Nose, Mouth, and Throat: ABSENT: mouth pain Cardiovascular: ABSENT: dyspnea on exertion, edema Gastrointestinal: PRESENT: abdominal pain, nausea, vomiting. ABSENT: coffee ground emesis, constipation, diarrhea Musculoskeletal: ABSENT: deformity, joint swelling Integumentary: ABSENT: lesions, rash Neurological: ABSENT: frequent falls, memory loss, numbness Psychiatric: ABSENT: anxiety, hallucinations Endocrine: ABSENT: cold intolerance, heat intolerance Hematologic/Lymphatic: ABSENT: easy bruising, lymphadenopathy Physical Exam Vital Signs: Temp Pulse Resp BP Pulse Ox 97.7 F 86 22 H 125/87 H 93 10/18/17 05:47 10/18/17 05:47 10/18/17 10:01 10/18/17 10:01 10/18/17 10:01 General appearance: PRESENT: cooperative. ABSENT: severe distress Head exam: PRESENT: atraumatic, normocephalic Eye exam: PRESENT: EOMI, PERRLA Ear exam: PRESENT: normal external ear exam Mouth exam: PRESENT: moist, neck supple, tongue midline Neck exam: ABSENT: JVD, tenderness, thyromegaly Respiratory exam: ABSENT: accessory muscle use, rales, rhonchi, wheezes Cardiovascular exam: PRESENT: RRR, +S1, +S2 Pulses: PRESENT: normal radial pulses, normal dorsalis pedis pul GI/Abdominal exam: PRESENT: diminished bowel sounds. ABSENT: guarding, mass, Goss's sign, organolmegaly, rigid, soft Extremities exam: ABSENT: joint swelling, pedal edema Musculoskeletal exam: PRESENT: full ROM, normal inspection Neurological exam: PRESENT: awake, oriented to person, oriented to place, oriented to time, CN II-XII grossly intact Psychiatric exam: ABSENT: agitated, anxious Focused psych exam: ABSENT: delusional, pressured speech Skin exam: ABSENT: dry, erythema, jaundice Results Impressions: Abdomen/Pelvis CT 10/18/17 00:00 IMPRESSION: 1. IRREGULAR BOWEL WALL THICKENING INVOLVING THE TERMINAL ILEUM WHICH MAY BE DUE TO CHRONIC INFLAMMATION AND/OR SCARRING. THERE IS PROMINENT DILATION OF THE SMALL BOWEL PROXIMALLY CONSISTENT WITH MECHANICAL OBSTRUCTION. SMALL AMOUNT OF FREE FLUID IN THE PELVIS. 2. NO OTHER SIGNIFICANT OR ACUTE FINDING IN THE ABDOMEN OR PELVIS ON CT SCAN WITH IV CONTRAST. Chest X-Ray 10/18/17 12:12 IMPRESSION: No acute cardiopulmonary disease. Assessment & Plan - Diagnosis (1) Sepsis Plan: Starting IV fluid support, starting empiric ofloxacin, Flagyl. blood cult 2 taken. likely bowel source. (2) Crohns disease Qualifiers: Gastrointestinal tract location: unspecified location Digestive disease complication type: with intestinal obstruction Qualified Code(s): K50.912 - Crohn's disease, unspecified, with intestinal obstruction Plan: starting high dose IV solumedrol 125mg q6h, supportive IVF, consulting GI. Consulting General Surgery (3) Hypertension Plan: prn hydralazine with use parameters
[2017-10-19] MEDS ORDERED: METRONIDAZOLE 500 MG/NS RTU 100 ML IV ONE (06:22)
[2017-10-19] MEDS: METRONIDAZOLE 500 MG/NS RTU 100 ML IV SCH ×2 (06:44→14:36)
[2017-10-19 07:46] LABS: ABSOLUTE LYMPHOCYTES (AUTO) 1.4 10^3/uL (0.5-4.7); ABSOLUTE MONOCYTES (AUTO) 0.3 10^3/uL (0.1-1.4); ABSOLUTE NEUT (AUTO) 10.2 10^3/uL (1.7-8.2); HEMATOCRIT 34.2 % (36.0-47.0); HEMOGLOBIN 11.2 g/dL (12.0-15.5); LYMPHOCYTES % (AUTO) 11.5 % (13-45); MEAN CORPUSCULAR HEMOGLOBIN 26.2 pg (27.0-33.4); MEAN CORPUSCULAR HGB CONC 32.8 g/dL (32.0-36.0); MEAN CORPUSCULAR VOLUME 80 fl (80-97); MONOCYTES % (AUTO) 2.4 % (3-13); PLATELET COUNT 263 10^3/uL (150-450); RED BLOOD COUNT 4.28 10^6/uL (3.72-5.28); RED CELL DISTRIBUTION WIDTH 14.7 % (11.5-14.0); SEGMENTED NEUTROPHILS % (AUTO) 86.1 % (42-78); TOTAL CELLS COUNTED % (AUTO) 100 %; WHITE BLOOD COUNT 11.9 10^3/uL (4.0-10.5)
[2017-10-19 08:11] LABS: ALANINE AMINOTRANSFERASE 28 U/L (9-52); ALBUMIN 3.2 g/dL (3.5-5.0); ALKALINE PHOSPHATASE 33 U/L (38-126); ANION GAP 6 (5-19); ASPARTATE AMINO TRANSFERASE 14 U/L (14-36); BILIRUBIN,DIRECT 0.1 mg/dL (0.0-0.4); BILIRUBIN,TOTAL 0.1 mg/dL (0.2-1.3); BLOOD UREA NITROGEN 15 mg/dL (7-20); CALCIUM 7.8 mg/dL (8.4-10.2); CARBON DIOXIDE 25 mmol/L (22-30); CHLORIDE 110 mmol/L (98-107); GLUCOSE 107 mg/dL (75-110); POTASSIUM 3.6 mmol/L (3.6-5.0); SODIUM 141.1 mmol/L (137-145); TOTAL PROTEIN 6.1 g/dL (6.3-8.2)
[2017-10-19] MEDS ORDERED: LEVOTHYROXINE SODIUM INJ/PF 0.1 MG SDV IV SCH (10:00)
--- NOTE | 2017-10-19 10:59 | PROGRESS NOTE E ---
Progress Note NAME: ADITYA ONTIVEROS : 1970 AGE: 47Y DATE: 10/19/2017 ROOM: 212 SUBJECTIVE: The patient is a 47-year-old female, who has a past medical history significant for hypertension, Crohn's disease, hyperlipidemia. She was admitted with nausea, vomiting and small bowel obstruction. She had NG tube placed. She is feeling much better today. She passed some gas and the suction from the NG tube is very minimal. OBJECTIVE: GENERAL: The patient is lying in bed, comfortable, not in distress. VITAL SIGNS: Showed blood pressure 108/67, temperature 97.3, heart rate 84, respiratory rate 18, saturation 94% on room air. HEENT: Head normocephalic, atraumatic. Pupils round, reactive to light and accommodation bilaterally. Extraocular movements intact. Ears: Tympanic membranes intact bilaterally. No discharge from the ears. No discharge from the nose. NECK: Supple. No increased JVD. No thyromegaly. No lymphadenopathy. CARDIOVASCULAR: Normal S1, S2. Regular rate and rhythm. No murmur. RESPIRATORY: Lungs clear. ABDOMEN: Soft and nontender. MUSCULOSKELETAL: No edema. NEUROLOGIC: Awake, alert. SKIN: No rash. LABORATORY: Sodium 141, potassium 110, chloride 0.6. White blood count 12, hemoglobin 11. ASSESSMENT: 1. SMALL BOWEL OBSTRUCTION, RESOLVING. 2. SEPSIS. 3. CROHN'S DISEASE. 4. HYPERTENSION. PLAN: 1. We will discontinue IV fluids. Put the patient on a clear liquid diet. 2. Continue antibiotics for now, Cipro and Flagyl. Administer prednisone. 3. We will do abdominal x-ray to review and assess for resolution of bowel obstruction. MEDICAL NECESSITY: The patient needs to stay for 1 night for small bowel obstruction. DICTATING PHYSICIAN: SHENA CHOI M.D. [id number] PHY#: [id number] ID: [id number] JOB#: [id number] ACCT: [id number] cc: >
--- NOTE | 2017-10-19 12:00 | RADIOLOGY REPORT (SQ) ---
EXAM DESCRIPTION: ABDOMEN 2 VIEWS COMPLETED DATE/TIME: 10/19/2017 11:16 am REASON FOR STUDY: Small Bowel Obstruction COMPARISON: None. NUMBER OF VIEWS: Two views. TECHNIQUE: Supine and erect/decubitus radiographic images of the abdomen acquired. LIMITATIONS: None. FINDINGS: FREE AIR: None. No abnormal gas collections. LUNG BASES: Clear. BOWEL GAS PATTERN: Mildly dilated loops of small bowel in the upper abdomen with gas fluid levels. G as and fecal material in the colon. CALCIFICATIONS: No suspicious calcifications. SOFT TISSUES: No gross mass or suggestion of organomegaly. HARDWARE: None in the abdomen. BONES: No acute fracture. No worrisome bone lesions. OTHER: No other significant finding. IMPRESSION: Ileus or partial small bowel obstruction. TECHNICAL DOCUMENTATION: JOB ID: [id number] [employer]- All Rights Reserved Reading location - IP/workstation name: [email or web address]
[2017-10-19] MEDS ORDERED: HYDROCODONE/ACETAMINOPHEN 5-325 MG TABLET PO PRN (12:49)
--- NOTE | 2017-10-19 12:54 | PDOC PROGRESS REPORT ---
Subjective Progress Note for:: 10/19/17 Subjective:: comfortable, no nausea or vomiting after NGT removal Reason For Visit: CROHNS INFLAMMATION WITH OBSTRUCTED BOWEL Physical Exam Vital Signs: Temp Pulse Resp BP Pulse Ox 98.6 F 84 16 110/70 98 10/19/17 12:00 10/19/17 12:00 10/19/17 12:00 10/19/17 12:00 10/19/17 12:00 Intake & Output 10/18/17 10/19/17 10/20/17 06:59 06:59 06:59 Output Total 800 Balance -800 Weight 94.8 kg General appearance: PRESENT: no acute distress Respiratory exam: PRESENT: clear to auscultation compa Cardiovascular exam: PRESENT: RRR GI/Abdominal exam: PRESENT: soft Results Laboratory Results: 10/19/17 07:13 10/19/17 07:13 10/18/17 10/19/17 10/19/17 19:15 07:13 07:13 WBC 11.9 H RBC 4.28 Hgb 11.2 L Hct 34.2 L MCV 80 MCH 26.2 L MCHC 32.8 RDW 14.7 H Plt Count 263 Seg Neutrophils % 86.1 H Lymphocytes % 11.5 L Monocytes % 2.4 L Eosinophils % 0.0 Basophils % 0.0 Absolute Neutrophils 10.2 H Absolute Lymphocytes 1.4 Absolute Monocytes 0.3 Absolute Eosinophils 0.0 Absolute Basophils 0.0 Sodium 141.1 Potassium 3.6 Chloride 110 H Carbon Dioxide 25 Anion Gap 6 BUN 15 Creatinine 0.67 Est GFR ( Amer) > 60 Est GFR (Non-Af Amer) > 60 Glucose 107 Lactic Acid 1.3 Calcium 7.8 L Total Bilirubin 0.1 L AST 14 ALT 28 Alkaline Phosphatase 33 L Total Protein 6.1 L Albumin 3.2 L Impressions: Abdomen/Pelvis CT 10/18/17 00:00 IMPRESSION: 1. IRREGULAR BOWEL WALL THICKENING INVOLVING THE TERMINAL ILEUM WHICH MAY BE DUE TO CHRONIC INFLAMMATION AND/OR SCARRING. THERE IS PROMINENT DILATION OF THE SMALL BOWEL PROXIMALLY CONSISTENT WITH MECHANICAL OBSTRUCTION. SMALL AMOUNT OF FREE FLUID IN THE PELVIS. 2. NO OTHER SIGNIFICANT OR ACUTE FINDING IN THE ABDOMEN OR PELVIS ON CT SCAN WITH IV CONTRAST. Chest X-Ray 10/18/17 12:12 IMPRESSION: No acute cardiopulmonary disease. Abdomen X-Ray 03/17/18 00:00 IMPRESSION: Ileus or partial small bowel obstruction. Assessment & Plan - Diagnosis (1) Crohn's disease of ileum with intestinal obstruction Is this a current diagnosis for this admission?: Yes - Plan Summary Plan Summary: A/ resolved Crohn's disease induced obstruction Continue steroids and IV abx as per Hospitalist NGT out today Clear tolerated P/ Advance diet to low residue Patient can be discharged to home tomorrow by my viewpoint if she tolerates diet
[2017-10-19] MEDS ORDERED: CIPROFLOXACIN HCL 500 MG TABLET PO SCH (22:00)
[2017-10-20] MEDS: METRONIDAZOLE 500 MG TABLET PO SCH ×2 (00:37→06:42)
[2017-10-20] MEDS ORDERED: LEVOTHYROXINE SODIUM 0.112 MG TABLET PO SCH (06:00)
[2017-10-20 08:03] VITALS: BP 102/59
[2017-10-20] MEDS ORDERED: VALSARTAN 80 MG TABLET PO SCH (10:00)
[2017-10-20] MEDS ORDERED: HYDROCHLOROTHIAZIDE 12.5 MG TABLET PO SCH (10:00)
[2017-10-20] MEDS ORDERED: PREDNISONE 20 MG TABLET PO SCH (10:00)
--- NOTE | 2017-11-20 14:00 | DISCHARGE SUMMARY E ---
Discharge Summary NAME: ADITYA ONTIVEROS : 1970 AGE: 47Y ADMITTED: 10/18/2017 DISCHARGED: 10/20/2017 FINAL DIAGNOSES: 1. Crohn's disease. 2. Partial mechanical small bowel obstruction. COMPLICATIONS: None. PROCEDURE: None. HOSPITAL COURSE: This is a 47-year-old female with Crohn's disease affecting the small bowel with multiple areas of stricturing and small bowel fistulas and was admitted on October 18. The patient was then evaluated and transferred to a tertiary center on October 19. DISCHARGE INSTRUCTIONS: All the current medications, IV fluids were to be continued until the patient is transferred to the facility. DICTATING PHYSICIAN: JONES KING M.D. [id number] PHY#: [id number] ID: [id number] JOB#: [id number] ACCT: [id number] cc:Shazia ATKINSON M.D. > MTDD
== END 2017-10-20 08:15 | disposition home or self-care (01) | DRG 386 ==
LOC: ER 05:44 → EH 12:31 → 2N 15:10
PROVIDERS: ADMIT Family Medicine; ATTEND Family Medicine
PROC: 0D9670Z Drainage of Stomach with Drainage Device, Via Natural or Artificial Opening (ICD-10-PCS; principal; 2017-10-18)
PROC: 3E0F73Z Introduction of Anti-inflammatory into Respiratory Tract, Via Natural or Artificial Opening (ICD-10-PCS; 2017-10-19)
DX: K50.012 Crohn's disease of small intestine with intestinal obstruction (principal); E05.90 Thyrotoxicosis, unspecified without thyrotoxic crisis or storm; I10 Essential (primary) hypertension; F32.9 Major depressive disorder, single episode, unspecified; K44.9 Diaphragmatic hernia without obstruction or gangrene; Z79.899 Other long term (current) drug therapy; Z88.6 Allergy status to analgesic agent; Z88.1 Allergy status to other antibiotic agents; Z91.040 Latex allergy status; Z91.013 Allergy to seafood
CPT/HCPCS: 36415; 71045; 74019; 74177; 80053; 81001; 81025; 83605; 83690; 85025; 87040; 96361; 96365; 96375; 96376; 99285; J0744; J1170; J2060; J2250; J2270; J2405; J2930; J3490; J7030

== ENCOUNTER 2018-03-22 04:24 | Emergency (ER) | payer OTHER ==
[2018-03-22 04:34] VITALS: BP 119/87
[2018-03-22] MEDS ORDERED: METHYLPREDNISOLONE INJ 125 MG/2 ML SDV IV ONE (04:50)
[2018-03-22] MEDS ORDERED: ONDANSETRON HCL INJ/PF 4 MG/2 ML SDV IV ONE (04:50)
[2018-03-22] MEDS ORDERED: NORMAL SALINE 1000 ML 1,000 ML IV ONE ×2 (04:50→06:07)
--- NOTE | 2018-03-22 04:52 | ER Document Report ---
ED GI/ - General Chief Complaint: Abdominal Pain Stated Complaint: ABDOMINAL PAIN Time Seen by Provider: 03/22/18 04:43 Notes: Patient is a 47-year-old female with a history of Crohn's disease that comes emergency department for chief complaint of worsening mid abdominal pain since yesterday. She reports nausea but denies vomiting, had a firm bowel movement within the past 24 hours, nonbloody. She denies fever or chills. She has had a small bowel obstruction once in the past, treated without surgery, has had a hysterectomy, , remaining medical history includes hypothyroidism and hypertension. TRAVEL OUTSIDE OF THE [place] IN LAST 30 DAYS: No - Related Data Allergies/Adverse Reactions: latex [Latex] Allergy (Severe, Verified 07/15/17 05:28) Shellfish * [Shellfish] Allergy (Severe, Verified 07/15/17 05:28) aspirin Allergy (Intermediate, Verified 07/15/17 05:28) amoxicillin [From Augmentin] Allergy (Verified 07/15/17 05:28) clavulanic acid [From Augmentin] Allergy (Verified 07/15/17 05:28) Past Medical History - Social History Family History: Reviewed & Not Pertinent - Past Medical History Cardiac Medical History: Reports: Hx Hypertension - ON MEDS Denies: Hx Atrial Fibrillation, Hx Congestive Heart Failure, Hx Coronary Artery Disease, Hx Heart Attack, Hx Hypercholesterolemia, Hx Peripheral Vascular Disease, Hx Pulmonary Embolism, Hx Heart Murmur Pulmonary Medical History: Reports: Hx Bronchitis - DECEMBER 2016 Denies: Hx Asthma, Hx COPD, Hx Pneumonia, Hx Respiratory Failure, Hx Sleep Apnea, Hx Tuberculosis Neurological Medical History: Endocrine Medical History: Reports: Hx Hyperthyroidism. Denies: Hx Graves' Disease, Hx Hypothyroidism Renal/ Medical History: Denies: Hx End Stage Renal Disease, Hx Kidney Stones, Hx Peritoneal Dialysis Malignancy Medical History: Denies: Hx Lung Cancer GI Medical History: Reports: Hx Crohn's Disease. Denies: Hx Gastroesophageal Reflux Disease, Hx Hiatal Hernia, Hx Irritable Bowel, Hx Liver Failure, Hx Pancreatitis, Hx Ulcer Musculoskeletal Medical History: Psychiatric Medical History: Reports: Hx Depression Denies: Hx Bipolar Disorder, Hx Post Traumatic Stress Disorder, Hx Schizophrenia Past Surgical History: Reports: Hx Breast Surgery - aumentation, Hx Section - 2X. Denies: Hx Appendectomy, Hx Bowel Surgery, Hx Cholecystectomy, Hx Colostomy, Hx Coronary Artery Bypass Graft, Hx Gastric Bypass Surgery, Hx Herniorrhaphy, Hx Hysterectomy, Hx Mastectomy, Hx Pacemaker, Hx Tonsillectomy, Hx Tubal Ligation - Immunizations Hx Diphtheria, Pertussis, Tetanus Vaccination: Yes Physical Exam - Vital signs Vitals: Temp Pulse Resp BP Pulse Ox 98.6 F 86 20 119/87 H 100 03/22/18 04:33 03/22/18 04:33 03/22/18 04:33 03/22/18 04:33 03/22/18 04:33 Course - Vital Signs Vital signs: Temp Pulse Resp BP Pulse Ox 98.6 F 86 20 119/87 H 100 03/22/18 04:33 03/22/18 04:33 03/22/18 04:33 03/22/18 04:33 03/22/18 04:33 Discharge - Discharge Referrals: KIERA LALA PA-C [Primary Care Provider] - Follow up as needed
--- NOTE | 2018-03-22 05:32 | ER Document Report ---
ED Medical Screen (RME) - General Chief Complaint: Abdominal Pain Stated Complaint: ABDOMINAL PAIN Time Seen by Provider: 03/22/18 04:43 Notes: Patient is a 47-year-old female with a history of Crohn's disease that comes emergency department for chief complaint of worsening mid abdominal pain since yesterday. She reports nausea but denies vomiting, had a firm bowel movement within the past 24 hours, nonbloody. She denies fever or chills. She has had a small bowel obstruction once in the past, treated without surgery, has had a hysterectomy, , remaining medical history includes hypothyroidism and hypertension. TRAVEL OUTSIDE OF THE [place] IN LAST 30 DAYS: No - Related Data Allergies/Adverse Reactions: latex [Latex] Allergy (Severe, Verified 07/15/17 05:28) Shellfish * [Shellfish] Allergy (Severe, Verified 07/15/17 05:28) aspirin Allergy (Intermediate, Verified 07/15/17 05:28) amoxicillin [From Augmentin] Allergy (Verified 07/15/17 05:28) clavulanic acid [From Augmentin] Allergy (Verified 07/15/17 05:28) Past Medical History - Past Medical History Cardiac Medical History: Reports: Hx Hypertension - ON MEDS Denies: Hx Atrial Fibrillation, Hx Congestive Heart Failure, Hx Coronary Artery Disease, Hx Heart Attack, Hx Hypercholesterolemia, Hx Peripheral Vascular Disease, Hx Pulmonary Embolism, Hx Heart Murmur Pulmonary Medical History: Reports: Hx Bronchitis - DECEMBER 2016 Denies: Hx Asthma, Hx COPD, Hx Pneumonia, Hx Respiratory Failure, Hx Sleep Apnea, Hx Tuberculosis Neurological Medical History: Endocrine Medical History: Reports: Hx Hyperthyroidism. Denies: Hx Graves' Disease, Hx Hypothyroidism Renal/ Medical History: Denies: Hx End Stage Renal Disease, Hx Kidney Stones, Hx Peritoneal Dialysis Malignancy Medical History: Denies: Hx Lung Cancer GI Medical History: Reports: Hx Crohn's Disease. Denies: Hx Gastroesophageal Reflux Disease, Hx Hiatal Hernia, Hx Irritable Bowel, Hx Liver Failure, Hx Pancreatitis, Hx Ulcer Musculoskeltal Medical History: Psychiatric Medical History: Reports: Hx Depression Denies: Hx Bipolar Disorder, Hx Post Traumatic Stress Disorder, Hx Schizophrenia Past Surgical History: Reports: Hx Breast Surgery - aumentation, Hx Section - 2X. Denies: Hx Appendectomy, Hx Bowel Surgery, Hx Cholecystectomy, Hx Colostomy, Hx Coronary Artery Bypass Graft, Hx Gastric Bypass Surgery, Hx Herniorrhaphy, Hx Hysterectomy, Hx Mastectomy, Hx Pacemaker, Hx Tonsillectomy, Hx Tubal Ligation - Immunizations Hx Diphtheria, Pertussis, Tetanus Vaccination: Yes History of Influenza Vaccine for 05/2017 - 10/2017 Season: Refused Physical Exam - Vital signs Vitals: Temp Pulse Resp BP Pulse Ox 98.6 F 86 20 119/87 H 100 03/22/18 04:33 03/22/18 04:33 03/22/18 04:33 03/22/18 04:33 03/22/18 04:33 - Abdominal Tenderness: Tender - Mid abdominal pain without guarding, minimal generalized abdominal pain otherwise, no rigidity or severe distention Course - Vital Signs Vital signs: Temp Pulse Resp BP Pulse Ox 98.6 F 86 20 119/87 H 100 03/22/18 04:33 03/22/18 04:33 03/22/18 04:33 03/22/18 04:33 03/22/18 04:33 Doctor's Discharge - Discharge Referrals: KIERA LALA PA-C [NO LOCAL MD] - Follow up as needed
[2018-03-22 05:45] LABS: ABSOLUTE BASOPHILS # (AUTO) 0.1 10^3/uL (0.0-0.2); ABSOLUTE EOSINOPHILS # (AUTO) 0.4 10^3/uL (0.0-0.6); ABSOLUTE LYMPHOCYTES (AUTO) 3.2 10^3/uL (0.5-4.7); ABSOLUTE MONOCYTES (AUTO) 0.6 10^3/uL (0.1-1.4); ABSOLUTE NEUT (AUTO) 7.3 10^3/uL (1.7-8.2); BASOPHILS % (AUTO) 0.7 % (0-2); EOSINOPHILS % (AUTO) 3.7 % (0-6); HEMATOCRIT 41.1 % (36.0-47.0); HEMOGLOBIN 13.6 g/dL (12.0-15.5); LYMPHOCYTES % (AUTO) 27.9 % (13-45); MEAN CORPUSCULAR HEMOGLOBIN 26.9 pg (27.0-33.4); MEAN CORPUSCULAR HGB CONC 33.1 g/dL (32.0-36.0); MEAN CORPUSCULAR VOLUME 82 fl (80-97); MONOCYTES % (AUTO) 5.5 % (3-13); PLATELET COUNT 303 10^3/uL (150-450); RED BLOOD COUNT 5.05 10^6/uL (3.72-5.28); RED CELL DISTRIBUTION WIDTH 15.4 % (11.5-14.0); SEGMENTED NEUTROPHILS % (AUTO) 62.2 % (42-78); TOTAL CELLS COUNTED % (AUTO) 100 %; WHITE BLOOD COUNT 11.7 10^3/uL (4.0-10.5)
[2018-03-22 06:03] LABS: ALANINE AMINOTRANSFERASE 79 U/L (9-52); ALBUMIN 4.5 g/dL (3.5-5.0); ALKALINE PHOSPHATASE 66 U/L (38-126); ANION GAP 15 (5-19); ASPARTATE AMINO TRANSFERASE 58 U/L (14-36); BILIRUBIN,DIRECT 0.3 mg/dL (0.0-0.4); BILIRUBIN,TOTAL 0.4 mg/dL (0.2-1.3); BLOOD UREA NITROGEN 15 mg/dL (7-20); CALCIUM 9.8 mg/dL (8.4-10.2); CARBON DIOXIDE 26 mmol/L (22-30); CHLORIDE 101 mmol/L (98-107); GLUCOSE 88 mg/dL (75-110); LIPASE 164.9 U/L (23-300); POTASSIUM 4.2 mmol/L (3.6-5.0); SODIUM 142.4 mmol/L (137-145); TOTAL PROTEIN 8.1 g/dL (6.3-8.2)
--- NOTE | 2018-03-22 06:09 | RADIOLOGY REPORT (SQ) ---
EXAM DESCRIPTION: Acute abdominal series COMPLETED DATE/TME: 03/22/2018 04:50 CLINICAL HISTORY: 47 years Female, hx crohns, hx SBO, mid abd pain COMPARISON: 3.17.18 NUMBER OF VIEWS/TECHNIQUE: 3 LIMITATIONS: None. FINDINGS: Intestinal gas pattern is within normal limits. Paucity of bowel gas. No suspicious calcification. Grossly intact skeletal structures. No acute cardiopulmonary findings. IMPRESSION: No acute findings.
[2018-03-22] MEDS ORDERED: PREDNISONE 20 MG TABLET PO ONE (07:05)
--- NOTE | 2018-03-22 07:06 | ER Document Report ---
ED General - General Chief Complaint: Abdominal Pain Stated Complaint: ABDOMINAL PAIN Time Seen by Provider: 03/22/18 04:43 TRAVEL OUTSIDE OF THE [place] IN LAST 30 DAYS: No - HPI Patient complains to provider of: Abdominal pain Notes: Patient coming in with a history of Crohn's disease currently on Remicade as to his last infusion was approximately 2 weeks ago. Patient states having mid abdominal pain consistent with Crohn's flares in the past. Patient states improvement with steroids given prior to my evaluation. Patient denies knowing any triggers no foods this experience has been dehydration. She states passing gas having normal stools no blood in her stools no nausea no vomiting. Patient resting comfortably upon my evaluation. - Related Data Allergies/Adverse Reactions: latex [Latex] Allergy (Severe, Verified 07/15/17 05:28) Shellfish * [Shellfish] Allergy (Severe, Verified 07/15/17 05:28) aspirin Allergy (Intermediate, Verified 07/15/17 05:28) amoxicillin [From Augmentin] Allergy (Verified 07/15/17 05:28) clavulanic acid [From Augmentin] Allergy (Verified 07/15/17 05:28) Past Medical History - Social History Smoking Status: Unknown if Ever Smoked Family History: Reviewed & Not Pertinent - Past Medical History Cardiac Medical History: Reports: Hx Hypertension - ON MEDS Denies: Hx Atrial Fibrillation, Hx Congestive Heart Failure, Hx Coronary Artery Disease, Hx Heart Attack, Hx Hypercholesterolemia, Hx Peripheral Vascular Disease, Hx Pulmonary Embolism, Hx Heart Murmur Pulmonary Medical History: Reports: Hx Bronchitis - DECEMBER 2016 Denies: Hx Asthma, Hx COPD, Hx Pneumonia, Hx Respiratory Failure, Hx Sleep Apnea, Hx Tuberculosis Neurological Medical History: Endocrine Medical History: Reports: Hx Hyperthyroidism. Denies: Hx Graves' Disease, Hx Hypothyroidism Renal/ Medical History: Denies: Hx End Stage Renal Disease, Hx Kidney Stones, Hx Peritoneal Dialysis Malignancy Medical History: Denies: Hx Lung Cancer GI Medical History: Reports: Hx Crohn's Disease. Denies: Hx Gastroesophageal Reflux Disease, Hx Hiatal Hernia, Hx Irritable Bowel, Hx Liver Failure, Hx Pancreatitis, Hx Ulcer Musculoskeletal Medical History: Psychiatric Medical History: Reports: Hx Depression Denies: Hx Bipolar Disorder, Hx Post Traumatic Stress Disorder, Hx Schizophrenia Past Surgical History: Reports: Hx Breast Surgery - aumentation, Hx Section - 2X. Denies: Hx Appendectomy, Hx Bowel Surgery, Hx Cholecystectomy, Hx Colostomy, Hx Coronary Artery Bypass Graft, Hx Gastric Bypass Surgery, Hx Herniorrhaphy, Hx Hysterectomy, Hx Mastectomy, Hx Pacemaker, Hx Tonsillectomy, Hx Tubal Ligation - Immunizations Hx Diphtheria, Pertussis, Tetanus Vaccination: Yes Review of Systems - Review of Systems Constitutional: No symptoms reported EENT: No symptoms reported Cardiovascular: No symptoms reported Respiratory: No symptoms reported Gastrointestinal: Abdominal pain Genitourinary: No symptoms reported Female Genitourinary: No symptoms reported Musculoskeletal: No symptoms reported Skin: No symptoms reported Hematologic/Lymphatic: No symptoms reported Neurological/Psychological: No symptoms reported -: Yes All other systems reviewed and negative Physical Exam - Vital signs Vitals: Temp Pulse Resp BP Pulse Ox 98.6 F 86 20 119/87 H 100 03/22/18 04:33 03/22/18 04:33 03/22/18 04:33 03/22/18 04:33 03/22/18 04:33 Interpretation: Normal - General General appearance: Appears well, Alert - HEENT Head: Normocephalic, Atraumatic Eyes: Normal Pupils: PERRL - Respiratory Respiratory status: No respiratory distress Chest status: Nontender Breath sounds: Normal Chest palpation: Normal - Cardiovascular Rhythm: Regular Heart sounds: Normal auscultation Murmur: No - Abdominal Inspection: Normal Distension: No distension Bowel sounds: Normal Tenderness: Nontender Organomegaly: No organomegaly - Back Back: Normal, Nontender - Extremities General upper extremity: Normal inspection, Nontender, Normal color, Normal ROM , Normal temperature General lower extremity: Normal inspection, Nontender, Normal color, Normal ROM , Normal temperature, Normal weight bearing. No: Lianna's sign - Neurological Neuro grossly intact: Yes Cognition: Normal Orientation: AAOx4 [place] Coma Scale Eye Opening: Spontaneous [place] Coma Scale Verbal: Oriented [place] Coma Scale Motor: Obeys Commands [place] Coma Scale Total: 15 Speech: Normal Motor strength normal: LUE, RUE, LLE, RLE Sensory: Normal - Psychological Associated symptoms: Normal affect, Normal mood - Skin Skin Temperature: Warm Skin Moisture: Dry Skin Color: Normal Course - Re-evaluation Re-evalutation: 03/22/18 07:26 The patient presents with abdominal pain without signs of peritonitis or other life-threatening or serious etiology. The patient appears stable for discharge and has been instructed to return immediately if the symptoms worsen in any way , or in 8-12hr if not improved for re-evaluation. The patient has been instructed to return if the symptoms worsen or change in any way. X-rays not showing signs of obstruction. Consistent with the patient's abdominal examination. Please let Crohn's flare. Will prescribe the patient steroids patient will be discharged home from encouraged follow-up with GI especially. - Vital Signs Vital signs: Temp Pulse Resp BP Pulse Ox 98.6 F 86 20 119/87 H 100 03/22/18 04:33 03/22/18 04:33 03/22/18 04:33 03/22/18 04:33 03/22/18 04:33 - Laboratory Result Diagrams: 03/22/18 05:34 03/22/18 05:34 Laboratory results interpreted by me: 03/22/18 03/22/18 05:34 05:34 WBC 11.7 H MCH 26.9 L RDW 15.4 H AST 58 H ALT 79 H Discharge - Discharge Clinical Impression: Crohns disease Qualifiers: Gastrointestinal tract location: unspecified location Digestive disease complication type: unspecified complication Qualified Code(s): K50.919 - Crohn' s disease, unspecified, with unspecified complications Abdominal pain Qualifiers: Abdominal location: unspecified location Qualified Code(s): R10.9 - Unspecified abdominal pain Condition: Good Disposition: HOME, SELF-CARE Instructions: Abdominal Pain ([facility]), Crohn's Disease ([facility]) Additional Instructions: Your laboratory studies and x-ray did not show any significant pathology at this time. Please make sure he follow-up with your primary care physician or the GI specialist listed. Return to ER symptoms worsen. Prescriptions: Dicyclomine HCl [Bentyl 20 mg Tablet] 20 mg PO QID #30 tablet Prednisone [Deltasone] 60 mg PO DAILY #24 tablet Forms: Return to Work Referrals: KIERA LALA PA-C [NO LOCAL MD] - Follow up as needed SRINATH ROSARIO MD [ACTIVE STAFF] - Follow up as needed
== END 2018-03-22 07:43 | disposition home or self-care (01) ==
LOC: ER 04:24
DX: K50.919 Crohn's disease, unspecified, with unspecified complications (principal); Z79.899 Other long term (current) drug therapy; I10 Essential (primary) hypertension; Z91.040 Latex allergy status; Z91.013 Allergy to seafood; Z88.6 Allergy status to analgesic agent; Z88.0 Allergy status to penicillin
CPT/HCPCS: 99284; 36415; 83690; 85025; 80053; 74022; J7512

== ENCOUNTER 2019-03-12 04:01 | Emergency (ER) | payer OTHER ==
[2019-03-12] MEDS ORDERED: ONDANSETRON HCL INJ/PF 4 MG/2 ML SDV IV ONE (04:22)
[2019-03-12] MEDS ORDERED: NORMAL SALINE 1000 ML 1,000 ML IV ONE (04:22)
[2019-03-12] MEDS ORDERED: HYDROMORPHONE HCL INJ/PF 2 MG/ML AMPULE IV ONE (04:22)
--- NOTE | 2019-03-12 04:24 | ER Document Report ---
ED GI/ - General Chief Complaint: Abdominal Pain Stated Complaint: ABDOMINAL PAIN Time Seen by Provider: 03/12/19 04:10 Primary Care Provider: DONALDO MONTGOMERY PA [Primary Care Provider] - Follow up as needed Information source: Patient, [facility] Records Notes: This 48-year-old female patient comes emergency room complaining of severe pain to her left upper abdomen and rib region that started acutely at 3 AM this morning. Patient had the or [employer] gastric balloon placed 4 weeks ago. TRAVEL OUTSIDE OF THE [place] IN LAST 30 DAYS: No - Related Data Allergies/Adverse Reactions: latex [Latex] Allergy (Severe, Verified 07/15/17 05:28) Shellfish * [Shellfish] Allergy (Severe, Verified 07/15/17 05:28) aspirin Allergy (Intermediate, Verified 07/15/17 05:28) amoxicillin [From Augmentin] Allergy (Verified 03/12/19 06:36) clavulanic acid [From Augmentin] Allergy (Verified 07/15/17 05:28) Past Medical History - General Information source: Patient, [facility] Records - Social History Smoking Status: Never Smoker Cigarette use (# per day): No Chew tobacco use (# tins/day): No Smoking Education Provided: No Frequency of alcohol use: Occasional Drug Abuse: None 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 Lives with: Spouse/Significant other Family History: Reviewed & Not Pertinent - Past Medical History Cardiac Medical History: Reports: Hx Hypertension Pulmonary Medical History: Reports: Hx Bronchitis - DECEMBER 2016 Neurological Medical History: Endocrine Medical History: Reports: Hx Hypothyroidism Renal/ Medical History: Malignancy Medical History: GI Medical History: Reports: Hx Crohn's Disease, Hx Hiatal Hernia Musculoskeletal Medical History: Psychiatric Medical History: Reports: Hx Depression Past Surgical History: Reports: Hx Breast Surgery - aumentation, Hx Section - 2X - Immunizations Hx Diphtheria, Pertussis, Tetanus Vaccination: Yes Review of Systems - Review of Systems Constitutional: No symptoms reported EENT: No symptoms reported Cardiovascular: No symptoms reported Respiratory: No symptoms reported Gastrointestinal: No symptoms reported Genitourinary: No symptoms reported Female Genitourinary: No symptoms reported Musculoskeletal: No symptoms reported Skin: No symptoms reported Hematologic/Lymphatic: No symptoms reported Neurological/Psychological: No symptoms reported Physical Exam - Vital signs Vitals: Temp Pulse Resp BP Pulse Ox 97.8 F 100 20 110/75 99 03/12/19 04:02 03/12/19 04:02 03/12/19 04:02 03/12/19 04:02 03/12/19 04:02 Interpretation: Normal - General General appearance: Alert, Anxious In distress: Moderate - HEENT Head: Normocephalic, Atraumatic Eyes: Normal Pupils: PERRL - Respiratory Respiratory status: No respiratory distress Breath sounds: Normal - Cardiovascular Rhythm: Regular Heart sounds: Normal auscultation Murmur: No - Abdominal Inspection: Normal Distension: No distension Bowel sounds: Normal Tenderness: Tender - Tender in the left epigastric region and left upper q uadrant abdomen.. No: Rebound - Back Back: Normal - Extremities General upper extremity: Normal inspection General lower extremity: Normal inspection - Neurological Neuro grossly intact: Yes - Psychological Associated symptoms: Normal affect, Normal mood Course - Re-evaluation Re-evalutation: 03/12/19 06:38 The patient did call her marketing account executive Dr. Christensen prior to coming to the emergency room. He requested that she call him when she gets discharged. - Vital Signs Vital signs: Temp Pulse Resp BP Pulse Ox 97.8 F 100 20 110/75 99 03/12/19 04:02 03/12/19 04:02 03/12/19 04:02 03/12/19 04:02 03/12/19 04:02 - Laboratory Result Diagrams: 03/12/19 04:20 03/12/19 04:20 Laboratory results interpreted by me: 03/12/19 03/12/19 04:20 04:20 Seg Neutrophils % 40.1 L Lymphocytes % 46.6 H Urine Protein 30 H Urine Ketones 80 H Ur Leukocyte Esterase MODERATE H - Diagnostic Test Radiology reviewed: Image reviewed - Gastrografin swallow shows contrast going past the gastric balloon and into the duodenum. Discharge - Discharge Clinical Impression: Abdominal pain Qualifiers: Abdominal location: left upper quadrant Qualified Code(s): R10.12 - Left upper quadrant pain Urinary tract infection Qualifiers: Urinary tract infection type: site unspecified Hematuria presence: with hematuria Qualified Code(s): N39.0 - Urinary tract infection, site not specified; R31.9 - Hematuria, unspecified Condition: Stable Disposition: HOME, SELF-CARE Additional Instructions: Abdominal Pain There are many causes of abdominal pain. Pain can mean a serious problem requiring surgery (such as appendicitis). It can also be an innocent problem that goes away on its own (such as a viral infection). Often, time must pass to determine the cause of pain. The physician does not feel that hospitalization is necessary, at present. Things may change within the next 24 hours. Call the doctor or come back for re- examination if any problems occur, such as: (1) Pain that becomes more severe, steady, or becomes concentrated in one specific area. Also, pain that is more severe with movement or coughing. (2) Vomiting that persists or becomes more frequent. (3) Blood in the vomitus, urine, or bowel movements. Blood in the stool may have a tarry or black appearance. (4) Shaking chills or fever greater than 100 degrees F. (5) The abdomen becomes more distended or swollen. (6) Bowel movements cease. (7) Failure to improve as expected. Urinary Tract Infection Your evaluation indicates that you have a urinary tract infection. This is due to germs growing in the bladder. This is a common problem. This infection usually responds quickly to antibiotics. Your antibiotic should be taken exactly as prescribed. Drink plenty of fluids -- three to four quarts a day. Occasionally, a bladder anesthetic will be prescribed to help stop the feeling of urgency until the antibiotic has a chance to clear the infection. This may cause your urine to be dark orange. Certain urine infections require a culture. If the doctor obtained a culture, the results will be back in two days. You should call to see if a change in treatment is needed. A repeat urinalysis after you finish treatment is often recommended. The physician will let you know if further testing is required. Call the doctor if you develop fever, chills, flank pain, inability to urinate, or blood in the urine. Take the medication as prescribed for the urinary tract infection. Drink plenty of fluids throughout the day in the evening. Your urine was quite concentrated due to inadequate fluid intake. This likely caused you to develop the urinary tract infection. There is no clear explanation for your abdominal pain, but it may be related to the gastric balloon. The pain medication as dispensed if necessary. Call Dr. Christensen to schedule a follow-up appointment today. Prescriptions: Cephalexin Monohydrate [Keflex 500 mg Capsule] 500 mg PO TID #15 capsule Referrals: DONALDO MONTGOMERY PA [Primary Care Provider] - Follow up as needed TY CHRISTENSEN MD [ACTIVE STAFF] - 03/12/19 (Call Dr. Christensen this morning to schedule follow-up.)
[2019-03-12 04:43] LABS: ABSOLUTE EOSINOPHILS # (AUTO) 0.3 10^3/uL (0.0-0.6); ABSOLUTE LYMPHOCYTES (AUTO) 3.2 10^3/uL (0.5-4.7); ABSOLUTE MONOCYTES (AUTO) 0.5 10^3/uL (0.1-1.4); ABSOLUTE NEUT (AUTO) 2.7 10^3/uL (1.7-8.2); BASOPHILS % (AUTO) 0.6 % (0-2); EOSINOPHILS % (AUTO) 4.9 % (0-6); HEMATOCRIT 43.5 % (36.0-47.0); LYMPHOCYTES % (AUTO) 46.6 % (13-45); MEAN CORPUSCULAR HEMOGLOBIN 29.1 pg (27.0-33.4); MEAN CORPUSCULAR HGB CONC 34.5 g/dL (32.0-36.0); MEAN CORPUSCULAR VOLUME 85 fl (80-97); MONOCYTES % (AUTO) 7.8 % (3-13); PLATELET COUNT 214 10^3/uL (150-450); RED BLOOD COUNT 5.15 10^6/uL (3.72-5.28); RED CELL DISTRIBUTION WIDTH 12.9 % (11.5-14.0); SEGMENTED NEUTROPHILS % (AUTO) 40.1 % (42-78); TOTAL CELLS COUNTED % (AUTO) 100 %; WHITE BLOOD COUNT 6.9 10^3/uL (4.0-10.5)
[2019-03-12 04:52] LABS: APPEARANCE,URINE CLOUDY; BILIRUBIN,URINE NEGATIVE (NEGATIVE); COLOR,URINE AMBER; GLUCOSE, URINE NEGATIVE (NEGATIVE); KETONES,URINE 80 mg/dL (NEGATIVE); LEUKOCYTE ESTERASE,URINE MODERATE (NEGATIVE); NITRITE,URINE NEGATIVE (NEGATIVE); PROTEIN,URINE 30 mg/dL (NEGATIVE); UROBILINOGEN,URINE NEGATIVE mg/dL (<2.0)
[2019-03-12 05:00] LABS: ALBUMIN 4.8 g/dL (3.5-5.0); ALKALINE PHOSPHATASE 61 U/L (38-126); ANION GAP 12 (5-19); ASPARTATE AMINO TRANSFERASE 30 U/L (14-36); BILIRUBIN,DIRECT 0.3 mg/dL (0.0-0.4); BILIRUBIN,TOTAL 0.6 mg/dL (0.2-1.3); BLOOD UREA NITROGEN 15 mg/dL (7-20); CALCIUM 9.7 mg/dL (8.4-10.2); CARBON DIOXIDE 28 mmol/L (22-30); CHLORIDE 99 mmol/L (98-107); CREATINE KINASE 66 U/L (30-135); GLUCOSE 106 mg/dL (75-110); POTASSIUM 3.6 mmol/L (3.6-5.0)
[2019-03-12] MEDS ORDERED: RINGERS SOLUTION,LACTATED 1,000 ML IV ONE (05:20)
[2019-03-12] MEDS ORDERED: CEPHALEXIN 500 MG CAPSULE PO ONE (06:34)
[2019-03-12] MEDS ORDERED: HYDROCODONE/ACETAMINOPHEN 5-325 MG (6 TAB/ER DISP) PO PRN (06:34)
[2019-03-12 07:01] VITALS: BP 98/56
--- NOTE | 2019-03-12 07:11 | RADIOLOGY REPORT (SQ) ---
CLINICAL HISTORY: Upright,w/Gastrografin,gastric balloon w/ abd pain COMPARISON: None. TECHNIQUE: XR ABDOMEN 1 VIEW (KUB) 03/12/2019 4:39 AM CDT FINDINGS: Bowel gas pattern is nonspecific. There are no abnormal radiopaque foreign bodies or abnormal calcifications. Osseous structures are grossly unremarkable. There is contrast in the stomach. There is no progression into the duodenum. IMPRESSION: Intragastric contrast.
== END 2019-03-12 07:28 | disposition home or self-care (01) ==
LOC: ER 04:01
DX: N39.0 Urinary tract infection, site not specified (principal); R10.12 Left upper quadrant pain; R31.9 Hematuria, unspecified; R10.9 Unspecified abdominal pain; I10 Essential (primary) hypertension
CPT/HCPCS: 99284; 96361; 96374; 96375; 36415; 87086; 82550; 83690; 85025; 80053; 81001; 74018; J1170; J2405; J7030; J7120

== ENCOUNTER → 2019-07-04 | Outpatient (CLI) | payer OTHER ==
[2019-07-04 20:04] LABS: BACTERIA (WET MOUNT) 4+ BACTERIA SEEN; T.VAGINALIS (WET MOUNT) NO TRICHOMONAS SEEN; WBCS (WET MOUNT) 4+ WBCS SEEN; YEAST (WET MOUNT) NO YEAST SEEN
[2019-07-04 20:05] LABS: EPITHELIALS (WET MOUNT) 3+ EPITHELIALS SEEN
[2019-07-04 21:25] LABS: CHLAM PCR NOT DETECTED (NOT DETECT)
== END ==
LOC: LAB 19:39
PROVIDERS: ATTEND Nurse Practitioner Family
DX: N76.0 Acute vaginitis (principal); R30.0 Dysuria
CPT/HCPCS: 87086; 87088; 87210; 87491; 87591

== ENCOUNTER 2019-09-24 12:07 | Day surgery (SDC) | payer OTHER ==
[2019-09-18 11:39] LABS: HEMATOCRIT 46.4 % (36.0-47.0); HEMOGLOBIN 15.9 g/dL (12.0-15.5); MEAN CORPUSCULAR HEMOGLOBIN 29.8 pg (27.0-33.4); MEAN CORPUSCULAR HGB CONC 34.3 g/dL (32.0-36.0); MEAN CORPUSCULAR VOLUME 87 fl (80-97); PLATELET COUNT 249 10^3/uL (150-450); RED BLOOD COUNT 5.33 10^6/uL (3.72-5.28); RED CELL DISTRIBUTION WIDTH 13.6 % (11.5-14.0); WHITE BLOOD COUNT 6.5 10^3/uL (4.0-10.5)
[2019-09-18 13:59] LABS: APPEARANCE,URINE SLIGHTLY-CLOUDY; BILIRUBIN,URINE NEGATIVE (NEGATIVE); COLOR,URINE YELLOW; GLUCOSE, URINE NEGATIVE (NEGATIVE); KETONES,URINE NEGATIVE (NEGATIVE); LEUKOCYTE ESTERASE,URINE NEGATIVE (NEGATIVE); NITRITE,URINE NEGATIVE (NEGATIVE); PROTEIN,URINE NEGATIVE (NEGATIVE); URINE SPECIFIC GRAVITY 1.019; UROBILINOGEN,URINE NEGATIVE mg/dL (<2.0)
--- NOTE | 2019-09-18 20:23 | EKG REPORT ---
SEVERITY:- NORMAL ECG - SINUS RHYTHM : Confirmed by: Kenn Vincent MD 18-Sep-2019 20:22:13
[~2019-09-24 12:07] MED LIST changes: +LACTATED RINGERS 1000 ML IV PRN; -LIDOCAINE 0.5% INJ-PF (5 MG/ML) 50 ML SDV SUBCUT PRN; -RINGERS SOLUTION,LACTATED 1,000 ML IV PRN
[2019-09-24] MEDS ORDERED: BUPIVACAINE HCL 0.5%-EPI 1:200000 INJ/PF 30 ML VIAL ONE (13:00)
[2019-09-24] MEDS ORDERED: PROPOFOL INJ 200 MG/20 ML VIAL IV ONE (13:44)
[2019-09-24] MEDS ORDERED: ONDANSETRON HCL INJ/PF 4 MG/2 ML SDV ONE (13:44)
[2019-09-24] MEDS ORDERED: DEXAMETHASONE SOD PHOSPHATE INJ 4 MG/1 ML VIAL ONE (13:44)
[2019-09-24] MEDS ORDERED: MIDAZOLAM 2 MG/2 ML INJ ONE (13:44)
[2019-09-24] MEDS ORDERED: FENTANYL CITRATE INJ/PF 100 MCG/2 ML AMPUL ONE (13:44)
[2019-09-24] MEDS ORDERED: CEFAZOLIN 1 GM/D5W RTU 1 GM/50 ML RTUPB IV ONE (14:05)
[2019-09-24] MEDS ORDERED: FENTANYL CITRATE INJ/PF 100 MCG/2 ML AMPUL IV PRN ×3 (14:40)
[2019-09-24] MEDS ORDERED: DIPHENHYDRAMINE HCL 50 MG/ML VIAL IV PRN (14:40)
[2019-09-24] MEDS ORDERED: MEPERIDINE HCL/PF INJ 25 MG/1 ML DISP.SYRIN IV PRN (14:40)
[2019-09-24] MEDS ORDERED: PROMETHAZINE HCL INJ 25 MG/1 ML VIAL IV PRN (14:40)
[2019-09-24] MEDS ORDERED: BUPIVACAINE HCL 0.5%-EPI 1:200000 INJ/PF 30 ML VIAL INJ ONE ×2 (14:42)
[2019-09-24 18:22] VITALS: BP 106/71
--- NOTE | 2019-10-07 10:37 | Operative Report ---
Operative Report DATE OF SURGERY: 09/24/19 PREOPERATIVE DIAGNOSIS: recurrent bartholins gland cyst POSTOPERATIVE DIAGNOSIS: caity OPERATION: Excision of Right bartholins gland cyst SURGEON: NITIN NICKERSON ANESTHESIA: GA TISSUE REMOVED OR ALTERED: bartholins gland cyst wall COMPLICATIONS: none ESTIMATED BLOOD LOSS: 100ml INTRAOPERATIVE FINDINGS: 3.5 to 4cm right bartholins mucinous gland cyst PROCEDURE: Anesthesia: GA IVF: [1000ml] UOP: [void prior to OR] Indications: [49yo with recurrent right bartholins gland cyst and needs excision of gland due to recurrance and due to the risk of dysplasia due to her age. She has been counseled on the risks, benefits, alternatives to procedure and desires to proceed with planned procedure.] Procedure: The patient was taken to the Operating Room where general anesthesia was obtained without difficulty. She was prepped and draped in the normal sterile fashion in the dorsal lithotomy position. Exam under anesthesia was performed and noted above. The right bartholins gland cyst was identified and isolated from surrounding tissue and excised. The cyst extending approximately 3cm deep into vagina and was excised fully. She wound was closed with interrupted 2-0 vicryl in a serial fashion and additional hemostasis was achieved with surgicel placement. No evidence of hematoma noted and site very hemostasic. Vaginal epithelium was closed in an interrupted fashion with 3- vicryl with good hemostasis. All instruments were removed from the patient's vagina. Sponge lap needle and instrument counts are correct 2. Antibiotics were given perioperatively. The patient tolerated the procedure well and was taken to the recovery area awake and in stable condition. The patient was discharged home with pain medications.
== END 2019-09-24 17:40 | disposition home or self-care (01) ==
LOC: OROUT 12:07
PROVIDERS: ATTEND Student in an Organized Health Care Education/Training Program
DX: N75.0 Cyst of Bartholin's gland (principal); I10 Essential (primary) hypertension; E03.9 Hypothyroidism, unspecified; Z79.899 Other long term (current) drug therapy
CPT/HCPCS: 93005; 86900; 86901; 36415 ×2; 86850; 84132; 85027; 81001; 88304 ×2; 93010; 00940; 56740; J2250; J3490; J0690; J1100; J3010; J2405; J2704; 940

== ENCOUNTER 2020-01-11 18:15 | Emergency (ER) | payer OTHER ==
--- NOTE | 2020-01-11 18:47 | ER Document Report ---
ED Medical Screen (RME) - General Chief Complaint: Urinary Problem Stated Complaint: URINNARY ISSUES Time Seen by Provider: 01/11/20 18:45 Primary Care Provider: HO GANDARA FNP-C [Primary Care Provider] - Follow up as needed Mode of Arrival: Ambulatory Information source: Patient Notes: 49-year-old female presented to ED for bilateral flank pain with burning and irritation with urination. She states the pain in her kidneys is about a 4-5. She does have a past medical history of Crohn's high blood pressure hypothyroid cyst on the vaginal wall C-sections breast implants and hysterectomy. She states she does not smoke or use any illicit drugs and drinks maybe once or twice a year. Patient is alert oriented respirations regular and unlabored speaking in full sentences. She states she thought it was just a UTI at first she was using cranberry juice and Azo until her pain went up to both kidneys and is throbbing. I have greeted and performed a rapid initial assessment of this patient. A comprehensive ED assessment and evaluation of the patient, analysis of test results and completion of medical decision making process will be conducted by an additional ED providers. TRAVEL OUTSIDE OF THE [place] IN LAST 30 DAYS: No - Related Data Allergies/Adverse Reactions: latex [Latex] Allergy (Severe, Verified 09/18/19 10:31) Shellfish * [Shellfish] Allergy (Severe, Verified 09/18/19 10:31) aspirin Allergy (Intermediate, Verified 09/18/19 10:31) amoxicillin [From Augmentin] Allergy (Verified 09/18/19 10:31) clavulanic acid [From Augmentin] Allergy (Verified 09/18/19 10:31) Past Medical History - Past Medical History Cardiac Medical History: Reports: Hx Hypertension Denies: Hx Atrial Fibrillation, Hx Congestive Heart Failure, Hx Coronary Artery Disease, Hx Heart Attack, Hx Hypercholesterolemia, Hx Peripheral Vascular Disease, Hx Pulmonary Embolism, Hx Heart Murmur Pulmonary Medical History: Reports: Hx Bronchitis - DECEMBER 2016 Denies: Hx Asthma, Hx COPD, Hx Pneumonia, Hx Respiratory Failure, Hx Sleep Apnea, Hx Tuberculosis Neurological Medical History: Denies: Hx Cerebrovascular Accident, Hx Seizures Endocrine Medical History: Reports: Hx Hyperthyroidism, Hx Hypothyroidism. Denies: Hx Graves' Disease Renal/ Medical History: Denies: Hx End Stage Renal Disease, Hx Kidney Stones, Hx Peritoneal Dialysis Malignancy Medical History: Denies: Hx Lung Cancer GI Medical History: Reports: Hx Crohn's Disease, Hx Hiatal Hernia. Denies: Hx Gastroesophageal Reflux Disease, Hx Irritable Bowel, Hx Liver Failure, Hx Pancreatitis, Hx Ulcer Musculoskeltal Medical History: Denies Hx Arthritis, Denies Hx Systemic Lupus Erythematosus Psychiatric Medical History: Reports: Hx Depression Denies: Hx Bipolar Disorder, Hx Post Traumatic Stress Disorder, Hx Schizophrenia Past Surgical History: Reports: Hx Breast Surgery - aumentation, Hx Section - 2X. Denies: Hx Appendectomy, Hx Bowel Surgery, Hx Cholecystectomy, Hx Colostomy, Hx Coronary Artery Bypass Graft, Hx Gastric Bypass Surgery, Hx Herniorrhaphy, Hx Hysterectomy, Hx Mastectomy, Hx Pacemaker, Hx Tonsillectomy, Hx Tubal Ligation - Immunizations Hx Diphtheria, Pertussis, Tetanus Vaccination: Yes Physical Exam - Vital signs Vitals: Temp Pulse Resp BP Pulse Ox 98.2 F 76 16 125/83 99 01/11/20 18:19 01/11/20 18:19 01/11/20 18:19 01/11/20 18:19 01/11/20 18:19 Course - Vital Signs Vital signs: Temp Pulse Resp BP Pulse Ox 98.2 F 76 16 125/83 99 01/11/20 18:19 01/11/20 18:19 01/11/20 18:19 01/11/20 18:19 01/11/20 18:19 Doctor's Discharge - Discharge Referrals: HO GANDARA FNP-C [Primary Care Provider] - Follow up as needed
[2020-01-11 19:21] LABS: APPEARANCE,URINE SLIGHTLY-CLOUDY; BILIRUBIN,URINE NEGATIVE (NEGATIVE); COLOR,URINE YELLOW; GLUCOSE, URINE NEGATIVE (NEGATIVE); KETONES,URINE NEGATIVE (NEGATIVE); PROTEIN,URINE NEGATIVE (NEGATIVE); UROBILINOGEN,URINE NEGATIVE mg/dL (<2.0)
--- NOTE | 2020-01-11 20:27 | ER Document Report ---
ED GI/ - General Chief Complaint: Urinary Problem Stated Complaint: URINNARY ISSUES Time Seen by Provider: 01/11/20 18:45 Primary Care Provider: HO GANDARA FNP-C [NURSE PRACTITIONER] - Follow up in 3-5 days Mode of Arrival: Ambulatory Notes: Patient is a 49-year-old female who presents to the emergency department with a chief complaint of bilateral flank pain. Patient has had her symptoms for the past week. Patient states that her symptoms come and go. Denies any hematuria. States that she could possibly have symptoms of urinary tract infection or bacterial vaginosis. States that her clothes have been a little tighter. Denies any new detergents. TRAVEL OUTSIDE OF THE [place] IN LAST 30 DAYS: No - Related Data Allergies/Adverse Reactions: latex [Latex] Allergy (Severe, Verified 01/11/20 18:49) Shellfish * [Shellfish] Allergy (Severe, Verified 01/11/20 18:49) aspirin Allergy (Intermediate, Verified 01/11/20 18:49) amoxicillin [From Augmentin] Allergy (Verified 01/11/20 18:49) clavulanic acid [From Augmentin] Allergy (Verified 01/11/20 18:49) Past Medical History - General Information source: Patient - Social History Smoking Status: Never Smoker Chew tobacco use (# tins/day): No Frequency of alcohol use: None Drug Abuse: None Family History: Reviewed & Not Pertinent Patient has homicidal ideation: No - Past Medical History Cardiac Medical History: Reports: Hx Hypertension Denies: Hx Atrial Fibrillation, Hx Congestive Heart Failure, Hx Coronary Artery Disease, Hx Heart Attack, Hx Hypercholesterolemia, Hx Peripheral Vascular Disease, Hx Pulmonary Embolism, Hx Heart Murmur Pulmonary Medical History: Reports: Hx Bronchitis - DECEMBER 2016 Denies: Hx Asthma, Hx COPD, Hx Pneumonia, Hx Respiratory Failure, Hx Sleep Apnea, Hx Tuberculosis Neurological Medical History: Denies: Hx Cerebrovascular Accident, Hx Seizures Endocrine Medical History: Reports: Hx Hyperthyroidism, Hx Hypothyroidism. Denies: Hx Graves' Disease Renal/ Medical History: Denies: Hx End Stage Renal Disease, Hx Kidney Stones, Hx Peritoneal Dialysis Malignancy Medical History: Denies: Hx Lung Cancer GI Medical History: Reports: Hx Crohn's Disease, Hx Hiatal Hernia. Denies: Hx Gastroesophageal Reflux Disease, Hx Irritable Bowel, Hx Liver Failure, Hx Pancreatitis, Hx Ulcer Musculoskeletal Medical History: Denies Hx Arthritis, Denies Hx Systemic Lupus Erythematosus Psychiatric Medical History: Reports: Hx Depression Denies: Hx Bipolar Disorder, Hx Post Traumatic Stress Disorder, Hx Schizophrenia Past Surgical History: Reports: Hx Breast Surgery - aumentation, Hx Section - 2X. Denies: Hx Appendectomy, Hx Bowel Surgery, Hx Cholecystectomy, Hx Colostomy, Hx Coronary Artery Bypass Graft, Hx Gastric Bypass Surgery, Hx Herniorrhaphy, Hx Hysterectomy, Hx Mastectomy, Hx Pacemaker, Hx Tonsillectomy, Hx Tubal Ligation - Immunizations Hx Diphtheria, Pertussis, Tetanus Vaccination: Yes Review of Systems - Review of Systems Notes: REVIEW OF SYSTEMS: CONSTITUTIONAL : Denies recent illness. Denies recent unintentional weight loss. Denies fever, chills, or sweats. EENT: Denies eye, ear, throat, or mouth pain, discharge, or symptoms. Denies nasal or sinus congestion. CARDIOVASCULAR: Denies chest pain. RESPIRATORY: Denies shortness of breath, cough, congestion, difficulty breathing, or wheezing. GASTROINTESTINAL: Denies nausea, vomiting, and diarrhea. Denies abdominal pain. Denies constipation. Last BM: GENITOURINARY: See HPI. FEMALE GENITOURINARY: See HPI. MUSCULOSKELETAL: See HPI. Denies joint pain or swelling. SKIN: Denies rash, itchiness, or lesions HEMATOLOGIC : Denies easy bruising or bleeding. LYMPHATIC: Denies swollen, painful, enlarged glands. NEUROLOGICAL: Denies no numbness or tingling denies weakness. Denies headache. Denies altered mental status. Denies alteration in speech. PSYCHIATRIC: Denies stress, anxiety, alteration in sleep patterns, or de pression. All other systems reviewed and negative. Physical Exam - Vital signs Vitals: Temp Pulse Resp BP Pulse Ox 98.2 F 76 16 125/83 99 01/11/20 18:19 01/11/20 18:19 01/11/20 18:19 01/11/20 18:19 01/11/20 18:19 - Notes Notes: PHYSICAL EXAMINATION: GENERAL: Appears well, healthy, well-nourished, no acute distress. HEAD: Normocephalic, atraumatic. EYES: PERRL, conjunctiva normal, all extraocular movements intact, sclera nonicteric ENT: Moist mucous membranes. NECK: Supple, no noticeable swelling, redness, rash. Normal range of motion. LUNGS: Equal breath sounds bilaterally and clear to auscultation. No wheezes rales or rhonchi. CARDIOVASCULAR: S1-S2, regular rate, regular rhythm. Radial pulses 2+, normal. ABDOMEN: Normoactive bowel sounds. Soft, nontender, no guarding, no rebound tenderness, and no masses palpated. EXTREMITIES: Normal strength and range of motion, no pitting or edema. No cyanosis. NEUROLOGICAL: Moves all extremities upon command. Strength 5/5 in all extremities. PSYCH: Normal mood, normal affect. SKIN: Warm, dry. No rash, lesions, ulcerations noted. Normal skin turgor. HHAS: Small amount of white/fox discharge noted in vaginal canal. No cervical motion tenderness. No adnexal tenderness. Course - Re-evaluation Re-evalutation: 01/11/20 20:28 Pelvic exam done with KRISTEN Delacruz at bedside. No cervical motion tenderness or adnexal tenderness noted. Urinalysis shows a large amount of leukocytes noted. 01/11/20 20:55 Patient states that she has to leave for work. Her wet mount results are not back yet. I will call her with those results. Her ultrasound is also not back yet. We will call her with those results. I suspect this will be normal. 01/11/20 21:14 Patient has 3+ epithelial cells and 4+ bacteria seen on her wet mount. She also has 3+ WBCs. No yeast or trichomonas was seen. We will start the patient on Flagyl. I called her on her personal phone and relayed this information. Will send her prescription to [facility] pharmacy. 01/13/20 08:30 I went back to check on the patient's renal ultrasound, which was normal. Contacted patient and notified her. - Vital Signs Vital signs: Temp Pulse Resp BP Pulse Ox 97.7 F 63 18 123/79 97 01/11/20 20:57 01/11/20 20:52 01/11/20 20:52 01/11/20 20:52 01/11/20 20:52 - Laboratory Laboratory results interpreted by me: 01/11/20 18:20 Leukocyte Esterase Rfl LARGE H Discharge - Discharge Clinical Impression: Flank pain, Bacterial vaginosis Urinary tract infection Qualifiers: Urinary tract infection type: acute cystitis Hematuria presence: without hematuria Qualified Code(s): N30.00 - Acute cystitis without hematuria Condition: Stable Disposition: HOME, SELF-CARE Instructions: Urinary Tract Infection ([facility]) Additional Instructions: Your urine shows findings consistent with a urinary tract infection. Please take all the antibiotics as directed even if your symptoms have improved. Please follow-up with your primary care physician as needed. Return to emergency room if you develop fever >101F, persistent vomiting, become lethargic, have severe pain in your sides, or any other symptoms that are concerning to you. If your wet mount comes back positive with anything, you will be called and I will call a prescription in for you. Prescriptions: Metronidazole [Flagyl 500 mg Tablet] 500 mg PO Q6H #28 tablet Cephalexin [Keflex] 500 mg PO BID #14 capsule Referrals: HO GANDARA FNP-C [NURSE PRACTITIONER] - Follow up in 3-5 days
[2020-01-11 20:57] VITALS: BP 123/79
[2020-01-11 21:01] LABS: BACTERIA (WET MOUNT) 4+ BACTERIA SEEN; EPITHELIALS (WET MOUNT) 3+ EPITHELIALS SEEN; RBCS (WET MOUNT) 1+ RBCS SEEN; T.VAGINALIS (WET MOUNT) NO TRICHOMONAS SEEN; WBCS (WET MOUNT) 3+ WBCS SEEN; YEAST (WET MOUNT) NO YEAST SEEN
[2020-01-11 22:25] LABS: CHLAM PCR NOT DETECTED (NOT DETECT)
--- NOTE | 2020-01-11 22:28 | RADIOLOGY REPORT (SQ) ---
Ultrasound renal on 01/11/2020 at 7:53 PM CLINICAL INDICATION: Bilateral back pain COMPARISON: CT from 10/18/2017 FINDINGS: Multiple sonographic images are obtained throughout the kidneys and bladder, both transverse and sagittal images are obtained. Right kidney measures approximately 10.1 cm in greatest [id number] length. The left kidney measures approximately 11.1 cm in greatest [id number] length. Both kidneys appear normal in size and morphology and without hydronephrosis. No bladder wall thickening or intraluminal filling defect is noted. Neither ureteral jet is visualized during the exam. IMPRESSION: Essentially unremarkable exam.
== END 2020-01-11 20:58 | disposition home or self-care (01) ==
LOC: ER 18:15
DX: N30.00 Acute cystitis without hematuria (principal); N76.0 Acute vaginitis; B96.89 Other specified bacterial agents as the cause of diseases classified elsewhere; R10.9 Unspecified abdominal pain; I10 Essential (primary) hypertension; E03.9 Hypothyroidism, unspecified; Z91.040 Latex allergy status; Z88.6 Allergy status to analgesic agent; Z88.0 Allergy status to penicillin
CPT/HCPCS: 36415; 76770; 81001; 87086; 87210; 87491; 87591; 99284